=== PATIENT | female | born 1995 | race African-American/Black ===

== ENCOUNTER 2020-01-07 10:31 | Outpatient (REF) | payer OTHER, SELFPAY ==
[2020-01-07 16:54] LABS: CT PCR NOT DETECTED (Not Detect.); NG PCR DETECTED (Not Detect.)
[2020-01-08 12:22] LABS: BV Int Neg Control Negative (Negative); BV Int Pos Control Positive (Positive)
[2020-01-10 08:47] LABS: HIV AB/AG Nonreactive (Nonreactive); HIV Num 1 0.06 S/CO (0.00-0.99)
== END 2020-01-07 10:32 | disposition home or self-care (01) ==
LOC: HO.HMGCLDS 10:31
PROVIDERS: PCP Internal Medicine; Visit Provider Nurse Practitioner Family
DX: Z20.2 Contact with and (suspected) exposure to infections with a predominantly sexual mode of transmission (principal)
CPT/HCPCS: 87389; 87480; 87491; 87510; 87591; 87660

== ENCOUNTER 2020-03-08 09:47 | Outpatient (REF) | payer OTHER, SELFPAY | END 2020-03-08 09:48 | disposition home or self-care (01) | LOC: HO.LAB 09:47 | PROVIDERS: Visit Provider Internal Medicine | DX: Z20.828 Contact with and (suspected) exposure to other viral communicable diseases (principal) | CPT/HCPCS: C9803; U0003 ==

== ENCOUNTER 2020-04-10 09:40 | Outpatient (REF) | payer OTHER, SELFPAY ==
[2020-04-10 14:31] LABS: CT PCR NOT DETECTED (Not Detect.); NG PCR DETECTED (Not Detect.)
[2020-04-10 15:14] LABS: Glucose Urine UA NEG (NEG); Leukocyte Esterase Urine TRACE (NEG); Nitrite Urine NEG (NEG); PH 5.5 (5.0-8.0); Specific Gravity - Urine >= 1.030 (1.005-1.025); Urine Blood NEG (NEG); Urine Ketones NEG (NEG); Urine Protein NEG (NEG-TRACE)
[2020-04-10 15:17] LABS: Appearance Urine CLOUDY; Color Urine YELLOW
[2020-04-10 15:56] LABS: RBC Urine 0 /HPF (0); Squamous Epithelial Cell Urine 1+ /LPF
[2020-04-10 15:57] LABS: Amorphous Sediment Urine 3+ /LPF
[2020-04-11 12:04] LABS: BV Int Neg Control Negative (Negative); BV Int Pos Control Positive (Positive)
== END 2020-04-10 09:41 | disposition home or self-care (01) ==
LOC: HO.LAB 09:40
PROVIDERS: Visit Provider Physician Assistant
DX: N39.0 Urinary tract infection, site not specified (principal); Z11.3 Encounter for screening for infections with a predominantly sexual mode of transmission
CPT/HCPCS: 81001; 81003; 87086; 87480; 87491; 87510; 87591; 87660

== ENCOUNTER 2020-05-18 12:22 | Outpatient (REF) | payer OTHER, SELFPAY ==
[2020-05-18 19:45] LABS: CT PCR NOT DETECTED (Not Detect.); NG PCR NOT DETECTED (Not Detect.)
[2020-05-19 08:23] LABS: BV Int Neg Control Negative (Negative); BV Int Pos Control Positive (Positive)
== END 2020-05-18 12:23 | disposition home or self-care (01) ==
LOC: HO.LAB 12:22
PROVIDERS: Visit Provider Nurse Practitioner Family
DX: N89.8 Other specified noninflammatory disorders of vagina (principal)
CPT/HCPCS: 87480; 87491; 87510; 87591; 87660

== ENCOUNTER 2020-08-14 09:53 | Outpatient (REF) | payer OTHER, SELFPAY ==
[2020-08-15 10:46] LABS: BV Int Neg Control Negative (Negative); BV Int Pos Control Positive (Positive)
== END 2020-08-14 09:54 | disposition home or self-care (01) ==
LOC: HO.LAB 09:53
PROVIDERS: Visit Provider Nurse Practitioner Family
DX: N89.8 Other specified noninflammatory disorders of vagina (principal); R35.0 Frequency of micturition; Z32.02 Encounter for pregnancy test, result negative
CPT/HCPCS: 87086; 87480; 87510; 87660

== ENCOUNTER 2020-08-31 11:12 | Outpatient (REF) | payer OTHER, SELFPAY ==
[2020-08-31 18:40] LABS: CT PCR NOT DETECTED (Not Detect.); NG PCR NOT DETECTED (Not Detect.)
[2020-09-01 03:53] LABS: Syphilis Screen Nonreactive (Nonreactive)
[2020-09-01 04:13] LABS: HBS Num1 44.94 mIU/mL (0-7.99); HBc Num1 0.12 S/CO (0.00-0.79); HIV AB/AG Nonreactive (Nonreactive); HIV Num 1 0.06 S/CO (0.00-0.99); Hepatitis A Antibody IgM 0.12 Index (0-0.79); Hepatitis B Core Antibody Nonreactive (Nonreactive); ~HepC Num1 0.13 S/CO (0.00-0.79); ~Hepatitis A Antibody IgM Nonreactive (Nonreactive); ~Hepatitis B Surface Antibody REACTIVE (Nonreactive); ~Hepatitis C Antibody Nonreactive (Nonreactive)
[2020-09-01 04:24] LABS: HBsAGNum1 0.23 S/CO (0.00-0.99); Hepatitis B Surface Antigen Negative (Negative)
[2020-09-01 08:38] LABS: BV Int Neg Control Negative (Negative); BV Int Pos Control Positive (Positive)
[2020-09-06 18:07] LABS: HSV 1 IgM IFA Negative (Negative); HSV 2 IgM IFA Negative (Negative)
== END 2020-08-31 11:13 | disposition home or self-care (01) ==
LOC: HO.HMGCLDS 11:12
PROVIDERS: PCP Internal Medicine; Visit Provider Hospitalist
DX: Z01.84 Encounter for antibody response examination (principal); Z11.4 Encounter for screening for human immunodeficiency virus [HIV]; Z11.3 Encounter for screening for infections with a predominantly sexual mode of transmission; N89.8 Other specified noninflammatory disorders of vagina
CPT/HCPCS: 36415; 86695; 86696; 86704; 86706; 86709; 86780; 86803; 87086; 87340; 87389; 87480; 87491; 87510; 87591; 87660

== ENCOUNTER 2020-11-06 11:43 | Outpatient (REF) | payer OTHER, SELFPAY ==
[2020-11-06 14:59] LABS: CT PCR NOT DETECTED (Not Detect.); NG PCR NOT DETECTED (Not Detect.)
== END 2020-11-06 11:44 | disposition home or self-care (01) ==
LOC: HO.LNP 11:43
PROVIDERS: Visit Provider Hospitalist
DX: Z20.822 Contact with and (suspected) exposure to COVID-19 (principal); K52.9 Noninfective gastroenteritis and colitis, unspecified; N89.8 Other specified noninflammatory disorders of vagina
CPT/HCPCS: 87491; 87591; U0003; U0005

== ENCOUNTER 2021-03-02 11:44 | Outpatient (REF) | payer OTHER, SELFPAY ==
[2021-03-03 11:19] LABS: BV Int Neg Control Negative (Negative); BV Int Pos Control Positive (Positive)
[2021-03-03 15:59] LABS: CT PCR NOT DETECTED (Not Detect.); NG PCR NOT DETECTED (Not Detect.)
== END 2021-03-02 11:45 | disposition home or self-care (01) ==
LOC: HO.LNP 11:44
PROVIDERS: Visit Provider Internal Medicine
DX: N39.0 Urinary tract infection, site not specified (principal)
CPT/HCPCS: 87480; 87491; 87510; 87591; 87660

== ENCOUNTER 2021-04-26 11:26 | Outpatient (REF) | payer OTHER, SELFPAY ==
[2021-04-27 08:31] LABS: HIV AB/AG Nonreactive (Nonreactive); HIV Num 1 0.07 S/CO (0.00-0.99); ~HepC Num1 0.17 S/CO (0.00-0.79); ~Hepatitis C Antibody Nonreactive (Nonreactive)
[2021-04-27 08:39] LABS: Syphilis Screen Nonreactive (Nonreactive)
== END 2021-04-26 11:27 | disposition home or self-care (01) ==
LOC: HO.HMGCLDS 11:26
PROVIDERS: PCP Internal Medicine; Visit Provider Nurse Practitioner Family
DX: Z11.4 Encounter for screening for human immunodeficiency virus [HIV] (principal); Z11.3 Encounter for screening for infections with a predominantly sexual mode of transmission
CPT/HCPCS: 36415; 86780; 86803; 87389

== ENCOUNTER 2021-04-26 13:48 | Outpatient (REF) | payer OTHER, SELFPAY ==
[2021-04-26 15:53] LABS: CT PCR NOT DETECTED (Not Detect.); NG PCR NOT DETECTED (Not Detect.)
[2021-04-27 10:00] LABS: BV Int Neg Control Negative (Negative)
[2021-04-27 10:01] LABS: BV Int Pos Control Positive (Positive)
== END 2021-04-26 13:49 | disposition home or self-care (01) ==
LOC: HO.LNP 13:48
PROVIDERS: Visit Provider Nurse Practitioner Family
DX: N76.0 Acute vaginitis (principal); B96.89 Other specified bacterial agents as the cause of diseases classified elsewhere
CPT/HCPCS: 87480; 87491; 87510; 87591; 87660

== ENCOUNTER 2021-06-22 11:04 | Outpatient (REF) | payer OTHER, SELFPAY ==
[2021-06-22 14:23] LABS: Syphilis Screen Nonreactive (Nonreactive)
[2021-06-25 04:07] LABS: HIV AB/AG Nonreactive (Nonreactive); HIV Num 1 0.05 S/CO (0.00-0.99); ~HepC Num1 0.14 S/CO (0.00-0.79); ~Hepatitis C Antibody Nonreactive (Nonreactive)
== END 2021-06-22 11:05 | disposition home or self-care (01) ==
LOC: HO.HMGCLDS 11:04
PROVIDERS: Visit Provider Nurse Practitioner Family
DX: Z11.4 Encounter for screening for human immunodeficiency virus [HIV] (principal); Z11.3 Encounter for screening for infections with a predominantly sexual mode of transmission
CPT/HCPCS: 36415; 86780; 86803; 87389

== ENCOUNTER 2021-06-22 13:35 | Outpatient (REF) | payer OTHER, SELFPAY ==
[2021-06-22 15:47] LABS: CT PCR NOT DETECTED (Not Detect.); NG PCR NOT DETECTED (Not Detect.)
[2021-06-23 11:09] LABS: BV Int Neg Control Negative (Negative)
[2021-06-23 11:10] LABS: BV Int Pos Control Positive (Positive)
== END 2021-06-22 13:36 | disposition home or self-care (01) ==
LOC: HO.LNP 13:35
PROVIDERS: Visit Provider Nurse Practitioner Family
DX: Z11.3 Encounter for screening for infections with a predominantly sexual mode of transmission (principal); Z11.4 Encounter for screening for human immunodeficiency virus [HIV]; B96.89 Other specified bacterial agents as the cause of diseases classified elsewhere; N76.0 Acute vaginitis
CPT/HCPCS: 87480; 87491; 87510; 87591; 87660

== ENCOUNTER 2021-08-07 16:22 | Outpatient (REF) | payer OTHER, SELFPAY ==
[2021-08-08 10:55] LABS: BV Int Neg Control Negative (Negative); BV Int Pos Control Positive (Positive)
== END 2021-08-07 16:23 | disposition home or self-care (01) ==
LOC: HO.LNP 16:22
PROVIDERS: Visit Provider Internal Medicine
DX: N89.8 Other specified noninflammatory disorders of vagina (principal)
CPT/HCPCS: 87480; 87510; 87660

== ENCOUNTER 2021-09-27 14:17 | Outpatient (REF) | payer OTHER, SELFPAY ==
[2021-09-28 13:35] LABS: BV Int Neg Control Negative (Negative); BV Int Pos Control Positive (Positive)
== END 2021-09-27 14:18 | disposition home or self-care (01) ==
LOC: HO.LNP 14:17
PROVIDERS: Visit Provider Internal Medicine
DX: N89.8 Other specified noninflammatory disorders of vagina (principal)
CPT/HCPCS: 87480; 87510; 87660

== ENCOUNTER 2021-10-11 11:32 | Outpatient (REF) | payer OTHER, SELFPAY ==
[2021-10-12 09:22] LABS: BV Int Neg Control Negative (Negative); BV Int Pos Control Positive (Positive)
== END 2021-10-11 11:33 | disposition home or self-care (01) ==
LOC: HO.LNP 11:32
PROVIDERS: Visit Provider Internal Medicine
DX: R35.0 Frequency of micturition (principal); N89.8 Other specified noninflammatory disorders of vagina; R30.0 Dysuria
CPT/HCPCS: 87086; 87480; 87510; 87660

== ENCOUNTER 2022-02-13 11:20 | Outpatient (REF) | payer OTHER, SELFPAY ==
[2022-02-14 03:39] LABS: CT PCR NOT DETECTED (Not Detect.); NG PCR NOT DETECTED (Not Detect.)
[2022-02-14 10:14] LABS: BV Int Neg Control Negative (Negative); BV Int Pos Control Positive (Positive)
== END 2022-02-13 11:21 | disposition home or self-care (01) ==
LOC: HO.LAB 11:20
PROVIDERS: Visit Provider Internal Medicine
DX: N76.0 Acute vaginitis (principal)
CPT/HCPCS: 87480; 87491; 87510; 87591; 87660

== ENCOUNTER 2022-04-03 14:01 | Outpatient (REF) | payer OTHER, SELFPAY | END 2022-04-03 14:02 | disposition home or self-care (01) | LOC: HO.HMGCLDS 14:01 | PROVIDERS: PCP Internal Medicine; Visit Provider Internal Medicine | DX: Z13.89 Encounter for screening for other disorder (principal) ==

== ENCOUNTER 2022-04-03 14:01 | Outpatient (REF) | payer OTHER, SELFPAY | END 2022-04-03 14:02 | disposition home or self-care (01) | LOC: HO.LAB 14:01 | PROVIDERS: Visit Provider Internal Medicine | DX: Z13.89 Encounter for screening for other disorder (principal) ==

== ENCOUNTER 2022-04-03 14:01 | Outpatient (REF) | payer OTHER, SELFPAY ==
[2022-04-04 09:59] LABS: BV Int Neg Control Negative (Negative); BV Int Pos Control Positive (Positive)
[2022-04-06 02:33] LABS: HPV mRNA E6/E7 Not Detected (Not Detected)
== END 2022-04-03 14:02 | disposition home or self-care (01) ==
LOC: HO.LNP 14:01
PROVIDERS: Visit Provider Internal Medicine
DX: Z01.419 Encounter for gynecological examination (general) (routine) without abnormal findings (principal); N76.0 Acute vaginitis
CPT/HCPCS: 87480; 87510; 87624; 87660; 88142

== ENCOUNTER 2022-04-04 09:36 | Outpatient (REF) | payer OTHER, SELFPAY ==
[2022-04-04 11:21] LABS: MANUAL DIFF FLAG NO
[2022-04-04 11:39] LABS: Basophils Absolute Auto 0.1 X10*3/uL (0.0-0.2); Basophils Percent Auto 0.5 % (0-2); Eosinophils Absolute Auto 1.1 X10*3/uL (0.0-0.4); Hematocrit 39.6 % (37.0-47.0); Hemoglobin 13.2 g/dl (12.0-16.0); Imm Gran Abs Auto 0.02 X10*3/uL (0.00-0.03); Imm Gran Pct Auto 0.2 % (0.0-0.4); Lymphocytes Absolute Auto 2.6 X10*3/uL (1.2-4.9); Lymphocytes Percent Auto 26.6 % (20-40); Mean Corpuscular HGB Conc 33.3 g/dl (31.0-35.0); Mean Platelet Volume 11.3 fL (9.4-12.3); Monocytes Percent Auto 10.1 % (2-11); Neutrophils Percent Auto 51.6 % (45-73); Platelet Count 255 X10*3/uL (160-400); Red Blood Count 4.26 X10*6/uL (4.20-5.50); Red Cell Distribution Width 13.1 % (11.0-16.0); White Blood Count 9.7 X10*3/uL (4.8-10.8)
[2022-04-04 12:01] LABS: Alanine Aminotransferase 44 U/L (0-31); Alkaline Phosphatase 60 U/L (39-117); Anion Gap 13 (12-20); Aspartate Amino Transferase 152 U/L (5-31); Bilirubin Total 0.5 mg/dL (0.0-1.0); Blood Urea Nitrogen 12 mg/dL (9-16); Calcium 9.2 mg/dL (8.4-10.2); Carbon Dioxide 23 mmol/L (22-29); Chloride 108 mmol/L (96-108); Cholesterol 193 mg/dL; Estimated Glomerular Filt Rate > 60; Glucose Fasting 72 mg/dL (60-99); HDL Cholesterol 54 mg/dL; LDL Cholesterol Calculated 128 mg/dl; Potassium 4.2 mmol/L (3.3-5.1); Sodium 140 mmol/L (135-145); Total Protein 6.5 g/dL (6.5-8.0); Triglycerides 59 mg/dL
[2022-04-04 13:56] LABS: CT PCR NOT DETECTED (Not Detect.); NG PCR NOT DETECTED (Not Detect.)
[2022-04-05 08:57] LABS: Syphilis Screen Nonreactive (Nonreactive)
[2022-04-05 08:58] LABS: HIV AB/AG Nonreactive (Nonreactive); HIV Num 1 0.04 S/CO (0.00-0.99)
[2022-04-05 09:30] LABS: HBS Num1 33.39 mIU/mL (0-7.99); HBc Num1 0.08 S/CO (0.00-0.79); HBsAGNum1 0.34 S/CO (0.00-0.99); Hepatitis A Antibody IgM 0.17 Index (0-0.79); Hepatitis B Core Antibody Nonreactive (Nonreactive); Hepatitis B Surface Antigen Negative (Negative); ~HepC Num1 0.12 S/CO (0.00-0.79); ~Hepatitis A Antibody IgM Nonreactive (Nonreactive); ~Hepatitis B Surface Antibody REACTIVE (Nonreactive); ~Hepatitis C Antibody Nonreactive (Nonreactive)
== END 2022-04-04 09:37 | disposition home or self-care (01) ==
LOC: HO.HMGCLDS 09:36
PROVIDERS: PCP Internal Medicine; Visit Provider Internal Medicine
DX: Z00.00 Encounter for general adult medical examination without abnormal findings (principal); Z11.4 Encounter for screening for human immunodeficiency virus [HIV]; J45.909 Unspecified asthma, uncomplicated; R79.89 Other specified abnormal findings of blood chemistry
CPT/HCPCS: 0353U; 36415; 80053; 80061; 85025; 86704; 86706; 86709; 86780; 86803; 87340; 87389

== ENCOUNTER 2022-06-07 14:08 | Outpatient (REF) | payer OTHER, SELFPAY ==
[2022-06-07 17:23] LABS: CT PCR NOT DETECTED (Not Detect.); NG PCR NOT DETECTED (Not Detect.)
[2022-06-08 15:10] LABS: BV Int Neg Control Negative (Negative); BV Int Pos Control Positive (Positive)
== END 2022-06-07 14:09 | disposition home or self-care (01) ==
LOC: HO.LNP 14:08
PROVIDERS: Visit Provider Internal Medicine
DX: N76.0 Acute vaginitis (principal); B96.89 Other specified bacterial agents as the cause of diseases classified elsewhere
CPT/HCPCS: 0353U; 87480; 87510; 87660

== ENCOUNTER 2022-06-20 11:09 | Outpatient (REF) | payer OTHER, SELFPAY ==
[2022-06-20 12:56] LABS: CT PCR NOT DETECTED (Not Detect.); NG PCR NOT DETECTED (Not Detect.)
[2022-06-21 10:39] LABS: BV Int Neg Control Negative (Negative); BV Int Pos Control Positive (Positive)
== END 2022-06-20 11:10 | disposition home or self-care (01) ==
LOC: HO.LNP 11:09
PROVIDERS: Visit Provider Internal Medicine
DX: N89.8 Other specified noninflammatory disorders of vagina (principal)
CPT/HCPCS: 0353U; 87480; 87510; 87660

== ENCOUNTER 2022-06-28 09:19 | Outpatient (REF) | payer OTHER, SELFPAY | END 2022-06-28 09:20 | disposition home or self-care (01) | LOC: HO.LAB 09:19 | PROVIDERS: Visit Provider Internal Medicine | DX: Z13.89 Encounter for screening for other disorder (principal) ==

== ENCOUNTER 2022-08-06 10:55 | Outpatient (REF) | payer OTHER, SELFPAY ==
[2022-08-06 14:51] LABS: Appearance Urine Clear; Color Urine Yellow; Glucose Urine UA Negative (Negative); Leukocyte Esterase Urine Small (1+) (Negative); Nitrite Urine Negative (Negative); PH 6.5 (5.0-9.0); Specific Gravity - Urine 1.025 (1.005-1.025); UMIC TRIGGER UACC YES; Urine Blood Moderate (2+) (Negative); Urine Ketones Negative (Negative); Urine Protein Negative (Neg-Trace)
[2022-08-06 15:19] LABS: Bacteria Urine 1+ (None Seen); Hyaline Casts Urine 0-2 /LPF (0-2); UACC Culture Trigger YES; WBC Urine 0-5 /HPF (0-5)
[2022-08-07 12:36] LABS: BV Int Neg Control Negative (Negative); BV Int Pos Control Positive (Positive)
== END 2022-08-06 10:56 | disposition home or self-care (01) ==
LOC: HO.LAB 10:55
PROVIDERS: Visit Provider Internal Medicine
DX: R30.0 Dysuria (principal)
CPT/HCPCS: 81001; 87086; 87480; 87510; 87660

== ENCOUNTER 2022-08-30 09:55 | Outpatient (REF) | payer OTHER, SELFPAY ==
[2022-08-30 13:14] LABS: CT PCR NOT DETECTED (Not Detect.); NG PCR NOT DETECTED (Not Detect.)
[2022-08-31 10:28] LABS: BV Int Neg Control Negative (Negative); BV Int Pos Control Positive (Positive)
== END 2022-08-30 09:56 | disposition home or self-care (01) ==
LOC: HO.LNP 09:55
PROVIDERS: Visit Provider Nurse Practitioner Family
DX: N89.8 Other specified noninflammatory disorders of vagina (principal)
CPT/HCPCS: 0353U; 87480; 87510; 87660

== ENCOUNTER 2022-11-21 09:10 | Outpatient (AMB) | payer OTHER, SELFPAY ==
--- NOTE | 2022-11-21 09:50 | MHC.OFFWIV ---
Intake Vital Signs 11/21/22 09:53 Weight 86.636 kg BP 110/70 Blood Pressure Location Lt brachial Position Sitting Pulse 72 Pulse Source Pulse Oximeter Temp 97.2 F Temp Source Temporal Artery Scan Pulse Oximetry (%) 98 Oxygen Delivery Method Room Air Intake Visit Reasons: EP Discharge Intake Note: Patient here for UTI or yeast infection, she has discharge that has been present for about 2 days, not urinating as usual. denies itchiness, burning, back pain. Patient Tobacco Use Status: Never used Tobacco Allergies No Known Allergies Allergy (Verified 11/21/22 09:53) Do you need a note to return to daycare/school/sports/work: No HPI HPI Comments History of Present Illness Details 1010 27-year-old female presents requesting UTI testing and testing for bacterial vaginosis, patient reports musty vaginal discharge. Patient also reports some vaginal discharge and she thinks it is BV. She does not think it is an STD. She states she recently got STD tested. Denies nausea, vomiting, fevers, chills, abdominal pain, headache, vision changes, dizziness, chest pain and shortness of breath Physical exam benign. Patient will self swab. Plan at this time urine, BV test. Patient does not want prophylactic STD testing. Will prophylactically treat with metronidazole p.o. b.i.d. x7 days. Educated patient on diagnosis and treatment plan, answered all question, patient verbalizes understanding. At this time patient will be discharged home, advised to return with new or worsening symptoms. Educated on worrisome signs and symptoms and when to return. At this time I feel comfortable discharge home. Patient requested a refill on her albuterol inhaler she just ran out, no respiratory symptoms at this time. Also requesting fluconazole be she states Flagyl gives her a yeast infection. [facility] Medical History Alopecia Annual physical exam GERD (gastroesophageal reflux disease) Mild asthma Surgical History No pertinent past surgical history Family History Father Medical history non-contributory Mother Medical history non-contributory Brother No problems noted. Brother No problems noted. Sister No problems noted. Son No problems noted. Social History Household Members Other:: lives alone, 1 son 6y old, smoke marijuana, Housing: House Patient Tobacco Use Status: Never used Tobacco e-Cigarette/Vaping Use: Never Used Current occupational status: employed Cognitive needs: No Hearing needs: No Vision needs: No Review of Systems Const Details: Constitutional : No Weight loss, No Fever, No Chills, No Fatigue, No Malaise ENT/Mouth : No sore throat, No Rhinorrhea Eyes: No Eye Pain, No Swelling, No Redness Cardiovascular : No Chest Pain, No SOB, No Dyspnea on Exertion, No Orthopnea, No Edema, No Palpitations Respiratory : No Cough, No Sputum, No Wheezing Gastrointestinal : No Nausea, No Vomiting, No Diarrhea, No Constipation, No abdominal Pain, No Hematochezia, No Melena Genitourinary : No Dysuria, No Urinary Frequency, No Hematuria, + vaginal dc Musculoskeletal : No joint pain, No Myalgias, No Joint Swelling Skin : No Skin Lesions, No rash Neuro : No Weakness, No Numbness, No Dizziness, No Headache Psych : No Anxiety/Panic, No Depression All other systems reviewed and are negative All systems reviewed & are unremarkable except as noted in HPI and below Physical Exam Vital Signs: Last Vital Signs Temp 97.2 F 11/21/22 09:53 Pulse 72 11/21/22 09:53 BP 110/70 11/21/22 09:53 Pulse Ox 98 11/21/22 09:53 Oxygen Delivery Method Room Air 11/21/22 09:53 vss Appearance: Alert.? Oriented X3.? No acute distress.? Head: Normocephalic, atraumatic, no step-offs or deformities Eyes: Pupils equal, round and reactive to light.? CVS: Normal heart rate and rhythm.? Pulses normal.? Respiratory: No respiratory distress.? Breath sounds normal.? Abdomen: Soft and nontender.? Skin: Skin warm and dry.? Normal skin color.? Normal skin turgor.? Extremities: No lower extremity edema.? No calf ttp. 5/5 strength to bilateral upper and lower extremities Neuro: Oriented X 3.? No motor deficit.? No sensory deficit. CN 2-12 intact Results AMB Urinalysis, Automated UA Leukoctes 15 Neymar/uL Last Edit by Leon Gibson [facility] on 11/21/22 10:04 UA Nitrite Negative Last Edit by Leon Gibson [facility] on 11/21/22 10:04 UA Urobilinogen 0.2 mg/dL Last Edit by EvetteHarleen Gibson [facility] on 11/21/22 10:04 UA Protein 15 mg/dL Last Edit by EvetteHarleen Gibson [facility] on 11/21/22 10:04 UA pH 5.5 Last Edit by [facility] on 11/21/22 10:04 UA Blood 0 Charles/uL Last Edit by EvetteNicole Gibson [facility] on 11/21/22 10:04 UA Specific [place] 1.030 Last Edit by EvetteHarleen Gibson [facility] on 11/21/22 10:04 UA Ketone Positive Last Edit by EvetteHarleen Gibson [facility] on 11/21/22 10:04 UA Bilirubin 1 mg/dL Last Edit by EvetteHarleen Gibson [facility] on 11/21/22 10:04 UA Glucose 0 mg/dL Last Edit by EvetteNicole Gibson, [facility] on 11/21/22 10:04 Results Reviewed Results Reviewed: Laboratory Last Values Urine pH (Auto) 5.5 11/21/22 10:03 Specific [place] (Auto) 1.030 11/21/22 10:03 Urine Protein (Auto) 15 mg/dL 11/21/22 10:03 Glucose (UA)(Auto) 0 mg/dL 11/21/22 10:03 Urine Ketones (Auto) Positive 11/21/22 10:03 Urine Blood (Auto) 0 Charles/uL 11/21/22 10:03 Urine Nitrite (Auto) Negative 11/21/22 10:03 Urine Bilirubin (Auto) 1 mg/dL 11/21/22 10:03 Urine Urobilinogen (Auto) 0.2 mg/dL 11/21/22 10:03 Leukocyte Esterase (Auto) 15 Neymar/uL 11/21/22 10:03 Assessment & Plan Assessment & Plan (1) Vaginal discharge: Comment: Pt tested for UTI, bacterial vaginosis panel as well as chlamydia and gonorrhea. Patient treated with 500 IM ceftriaxone will prescribe 7 days of 100 mg doxy. UTI was positive, will treat with 3 days of Bactrim. Code(s): N89.8 - Other specified noninflammatory disorders of vagina Plan Take your medications as prescribed. If you were prescribed antibiotics today, it is important that you take your medication to their entirety, do not skip any doses, do not finish them early. Follow-up with your primary care provider this week. Return to the emergency department with new or worsening symptoms. Such as fevers, chills, chest pain, shortness of breath, nausea, vomiting, dizziness, headache, vision changes, lethargy In case of emergency call 911 Orders: Orders AMB Urinalysis Automated Today Z13.9 - Encounter for screening, unspecified Medications: New metronidazole 500 mg PO BID 7 days 14 tabs 0RF fluconazole 150 mg PO Q3D 2 tabs 0RF 2 doses albuterol sulfate 90 mcg/actuation 2 puffs inhalation Q6H PRN 6.7 grams 0RF shortness of breath or wheezing Coding Level of Care Code Est Pt Level 3 (80421) Diagnoses Vaginal discharge N89.8
[2022-11-21 09:53] VITALS: BP 110/70; PULSE 72; TEMP 36.2; O2SAT 98
== END 2022-11-21 10:28 | disposition home or self-care (01) ==
PROVIDERS: PCP Internal Medicine; Visit Provider Physician Assistant
DX: N89.8 Other specified noninflammatory disorders of vagina (principal)
CPT/HCPCS: 81003; 99213

== ENCOUNTER 2022-11-21 10:26 | Outpatient (REF) | payer OTHER, SELFPAY ==
[2022-11-22 15:42] LABS: BV Int Neg Control Negative (Negative); BV Int Pos Control Positive (Positive)
== END 2022-11-21 10:27 | disposition home or self-care (01) ==
LOC: HO.LNP 10:26
PROVIDERS: Visit Provider Physician Assistant
DX: N89.8 Other specified noninflammatory disorders of vagina (principal); Z13.9 Encounter for screening, unspecified
CPT/HCPCS: 87480; 87510; 87660

== ENCOUNTER 2023-01-14 13:37 | Outpatient (AMB) | payer OTHER, SELFPAY ==
[2023-01-14 14:20] VITALS: BP 122/76; PULSE 58; TEMP 36.6; O2SAT 98; BMI 29.3
--- NOTE | 2023-01-14 14:20 | MHC.OFFWIV ---
Intake Vital Signs 01/14/23 14:20 Height 5 ft 7 in Weight 187 lb BMI 29.3 BP 122/76 Blood Pressure Location Lt brachial Position Sitting Pulse 58 Pulse Source Pulse Oximeter Temp 97.8 F Temp Source Temporal Artery Scan Pulse Oximetry (%) 98 Oxygen Delivery Method Room Air Intake Visit Reasons: EP, vaginal discharge Intake Note: pt is here for c/o vaginal discharge Patient Tobacco Use Status: Never used Tobacco Allergies No Known Allergies Allergy (Verified 01/14/23 14:20) Do you need a note to return to daycare/school/sports/work: Yes HPI HPI Comments History of Present Illness Details This is a 19-year-old female with a past medical history of asthma presenting for evaluation of vaginal discharge she has had since Friday. Patient describes her discharge as yellow and watery. Patient denies having any fevers, chills, dysuria, urinary frequency, hematuria, abdominal pain or new sexual partners. Patient does not use any barrier control and is sexually active with a single partner. [facility] Medical History GERD (gastroesophageal reflux disease) Annual physical exam Mild asthma Alopecia Surgical History No pertinent past surgical history Family History Father Medical history non-contributory Mother Medical history non-contributory Brother No problems noted. Brother No problems noted. Sister No problems noted. Son No problems noted. Social History Household Members Other:: lives alone, 1 son 6y old, smoke marijuana, Housing: House Patient Tobacco Use Status: Never used Tobacco e-Cigarette/Vaping Use: Never Used Current occupational status: employed Cognitive needs: No Hearing needs: No Vision needs: No Review of Systems Const Denies chills, Denies fatigue, Denies fever(s) and Denies lethargy GI Reports as per HPI and Denies abdominal pain Reports no additional complaints, Denies abnormal menses, Denies abnormal vaginal bleeding, Denies hematuria, Denies genital pruritis, Denies genital lesions, Reports vaginal discharge (yellow, watery) and Denies vaginal pruritus Musc Reports no additional complaints Skin/Breast Reports system reviewed and no additional complaints, except as documented Endo Denies fatigue Physical Exam Vital Signs: Last Vital Signs Temp 97.8 F 01/14/23 14:20 Pulse 58 01/14/23 14:20 BP 122/76 01/14/23 14:20 Pulse Ox 98 01/14/23 14:20 Oxygen Delivery Method Room Air 01/14/23 14:20 BMI result Body Mass Index 29.3 Const Other: Afebrile, no acute distress. General: cooperative, healthy appearing, comfortable, no acute distress, well developed and alert Nutritional Appearance: average body habitus Orientation/consciousness: patient oriented x3 Limitations: no limitations Cardio Rate: regular rate Rhythm: regular rhythm GI Inspection: Yes normal to inspection Palpation (GI): Soft to palpation, nontender, no guarding and not rigid Auscultation: normal bowel sounds Other: Pelvic examination deferred by patient; prefers to self swab her vagina. General: Yes no CVA tenderness Back/Spine/Pelvis Back: no CVA tenderness Neuro General: patient oriented x3 Psych Appearance: grossly normal Mental Status: mental status grossly normal Insight: Good insight present (Psych) Judgement: Good judgement present (Psych) Assessment & Plan Assessment & Plan (1) Vaginitis: Comment: Testing for gonorrhea, chlamydia, bacterial vaginitis, vaginal [place] and trichomoniasis pending; urine Hcg negative. Code(s): N76.0 - Acute vaginitis Plan: Patient encouraged to use condoms with all sexual activity; no treatment is initiated today pending results of testing. Orders: Orders CT NG by PCR Today N76.0 - Acute vaginitis Bacterial Vaginosis Panel Today N76.0 - Acute vaginitis Coding Level of Care Code Est Pt Level 4 (15383) Diagnoses Vaginitis N76.0 Time Spent (min) 25
== END 2023-01-14 15:27 | disposition home or self-care (01) ==
PROVIDERS: PCP Internal Medicine; Visit Provider Physician Assistant
DX: N76.0 Acute vaginitis (principal); Z32.02 Encounter for pregnancy test, result negative
CPT/HCPCS: 81025; 99214

== ENCOUNTER 2023-01-14 14:58 | Outpatient (REF) | payer OTHER, SELFPAY ==
[2023-01-14 18:00] LABS: CT PCR NOT DETECTED (Not Detect.); NG PCR NOT DETECTED (Not Detect.)
[2023-01-15 12:58] LABS: BV Int Neg Control Negative (Negative); BV Int Pos Control Positive (Positive)
== END 2023-01-14 14:59 | disposition home or self-care (01) ==
LOC: HO.LAB 14:58
PROVIDERS: Visit Provider Physician Assistant
DX: N76.0 Acute vaginitis (principal)
CPT/HCPCS: 0353U; 87480; 87510; 87660

== ENCOUNTER 2023-08-01 09:02 | Outpatient (AMB) | payer OTHER, SELFPAY ==
[2023-08-01 09:04] VITALS: BP 124/70; PULSE 65; BMI 27.9
--- NOTE | 2023-08-01 09:04 | MHC.PC.OV ---
Vital Signs 08/01/23 09:04 Height 5 ft 7 in Weight 178 lb BMI 27.9 BP 124/70 Blood Pressure Location Rt brachial Position Sitting Pulse 65 Pulse Source Palpation Intake Visit Reasons: Annual physical Intake Note: Pt is here today for PE. Allergies No Known Allergies Allergy (Verified 08/01/23 09:12) Medication List - Last Reconciled 08/01/23 by Maricarmen Guadarrama MD minoxidil 2.5 mg PO DAILY Ventolin HFA 90 mcg/actuation (albuterol sulfate) 2 puffs inhalation QID PRN NS Tobacco use date assessed: 08/01/23 Dental Screening Dental Screen Date: 08/01/23 Did you have a dental visit in the last 12 months?: Yes Did you have a dental problem in the last 6 months where you did not have access to dental care?: No Was dental information given to patient?: Patient has dentist HPI Annual physical HPI Details Pt presents for PE. Pt c/o feeling chronicly depressed and overwhelmed being a single mom taking care of her 9 yo son. Pt denies suicidal ideation. Patient tried counseling for 2 sessions last year but she did not continue. She has not interested in medications. Patient works out 5 times a week for these 2 hours at the gym she also works full-time. [facility] Medical History GERD (gastroesophageal reflux disease) Annual physical exam Mild asthma Alopecia Surgical History No pertinent past surgical history Family History Father Medical history non-contributory Mother Medical history non-contributory Brother No problems noted. Brother No problems noted. Sister No problems noted. Son No problems noted. Social History Household Members Other:: lives alone, 1 son 6y old, smoke marijuana, Housing: House Patient Tobacco Use Status: Never used Tobacco e-Cigarette/Vaping Use: Never Used service: No Current occupational status: employed Cognitive needs: No Hearing needs: No Vision needs: No Questionnaire PHQ-9 Over the last 2 weeks, how often have you been bothered by any of the following problems? 1. Little interest or pleasure in doing things: nearly every day 2. Feeling down, depressed, or hopeless: nearly every day 3. Trouble falling or staying asleep, or sleeping too much: more than half the days 4. Feeling tired or having little energy: nearly every day 5. Poor appetite or overeating: nearly every day 6. Feeling bad about yourself - or that you are a failure or have let yourself or your family down: nearly every day 7. Trouble concentrating on things, such as reading the newspaper or watching television: nearly every day 8. Moving or speaking so slowly that other people could have noticed. Or the opposite - being so fidgety or restless that you have been moving around a lot more than usual: nearly every day 9. Thoughts that you would be better off or of hurting yourself in some way: not at all Total score: 23 Depression Screening Interpretation: Positive (Patient will start therapy and will follow-up in 1 month) Depression Screening Follow-up: Existing condition Depression Screening Done: Yes Source: Developed by Drs. Roger Rodríguez, Gladys Vital, Casey Edward and colleagues, with an educational radha from [employer] Thrive Questionnaire Date Thrive assessed: 08/01/23 I am a: Patient What is your living situation today?: I have a steady place to live Within the past 12 months, did the food you bought not last and you didn't have the money to get more?: Never true Within the past 12 months, did you worry whether your food would run out before you got money to buy more?: Never true Do you have trouble paying for medicines?: Yes Do you have trouble getting transportation to medical appointments?: Yes Do you have trouble paying your heating and electricity bill?: No Do you have trouble taking care of your child, family member or friend?: No Do you have trouble with day-to-day activities such as bathing, preparing meals, shopping, managing finances, etc.?: No Are you currently unemployed and looking for a job?: No Are you interested in more education?: No Please select the resources that you would like help with: Paying for medicine and Transportation THRIVE Score: 1 AUDIT C Alcohol Use Questionnaire (AUDIT-C) 1. How often do you have a drink containing alcohol?: Never 3. How often do you have six or more drinks on one occasion?: Never Total Score: 0 JEET-7 AMB Questionnaire JEET-7 Date JEET - 7 assessed: 08/01/23 Feeling nervous, anxious, or on edge: 3 = Nearly every day Not being able to stop or control worryin = Several days Worrying too much about different things: 3 = Nearly every day Trouble relaxin = Nearly every day Being so restless that it is hard to sit still: 3 = Nearly every day Becoming easily annoyed or irritable: 3 = Nearly every day Feeling afraid as if something awful might happen: 1 = Several days Total JEET-7 score (0-4 normal; 5-9 mild; 10-14 moderate; 15-21 severe): 17 Source: Developed by Drs. Roger Rodríguez, Gladys Vital, Casey Edward and colleagues, with an educational radha from [employer]. Review of Systems Const All systems reviewed & are unremarkable except as noted in HPI and below Reports no additional complaints Eyes Reports no additional complaints ENT Reports no additional complaints Card Reports no additional complaints Resp Reports no additional complaints GI Reports no additional complaints Reports no additional complaints Physical exam (Primary Care) Vital Signs: Last Vital Signs Pulse 65 08/01/23 09:04 BP 124/70 08/01/23 09:04 BMI result Body Mass Index 27.9 Tobacco/Smoking Status: Tobacco use Status Tobacco use date assessed 08/01/23 08/01/23 09:15 Patient Tobacco Use Status Never used Tobacco 08/01/23 09:05 e-Cigarette/Vaping Use Never Used 08/01/23 09:05 PHQ-9: PHQ-9 Score PHQ-9: Total score 23 08/01/23 10:11 Depression Screening Interpretation: Positive (Patient will start therapy and will follow-up in 1 month) Depression Screening Follow-up: Existing condition Thrive Assessment: Date of Thrive Assessment Date Thrive assessed 08/01/23 08/01/23 09:19 Const General: no acute distress HENMT Head: Yes normal to inspection Ears: hearing grossly normal bilaterally General nose exam: Normal external nose present Mouth: Normal oral and palatal mucosa present Throat: Yes posterior oropharynx normal Eyes General: appearance normal, both eyes and all related structures Neck Neck: Yes no lymphadenopathy and Yes supple Resp Effort & Inspection: normal respiratory effort Auscultation: clear to auscultation bilaterally Cardio Rhythm: regular rhythm Heart sounds: S1 normal heart sound present and S2 normal heart sound present GI Inspection: Yes normal to inspection Palpation (GI): Soft to palpation Percussion: Yes normal to percussion Auscultation: normal bowel sounds Assessment and Plan Assessment & Plan (1) Pelvic inflammatory disease, female: Comment: For current BV infection patient will be referred to to keg inspector Code(s): N73.9 - Female pelvic inflammatory disease, unspecified Plan: refer to auditor/quality (2) Annual physical exam: Code(s): Z00.00 - Encounter for general adult medical examination without abnormal findings Plan: Well-balanced diet regular physical activity discussed with the patient. She will return for fasting blood work (3) Asthma: Code(s): J45.909 - Unspecified asthma, uncomplicated Plan: Asmanex 1 puff twice a day will be started patient will continue to use albuterol inhaler. She is made aware that if she is to use rescue inhaler more than twice a week patient should be using Asmanex regularly. For seasonal allergy patient will try Zyrtec if her symptoms persist she will be referred to the civil service clerk (4) Anxiety: Code(s): F41.9 - Anxiety disorder, unspecified Plan: Stress management and mindfulness discussed with the patient. She will be referred to counseling. Patient will follow-up in 1 month Orders: Orders Comprehensive [place]. Panel Fast Today Complete Blood Count Auto Diff Today Lipid Panel Today UA w Microscopic Today Bacterial Vaginosis Panel Today Referrals DIABETES PHYSICIAN Referral N73.9 - Female pelvic inflammatory disease, unspecified Medications: New cetirizine (Zyrtec) 10 mg PO DAILY PRN 90 tabs 3RF allergy symptoms mometasone 100 mcg/actuation (Asmanex HFA) 1 puff inhalation BID 13 grams 3RF Refilled Ventolin HFA 90 mcg/actuation (albuterol sulfate) 2 puffs inhalation QID PRN 8 grams 3RF for wheezing NS Coding Level of Care Code Est Pt Prev Care 18-39y(50250) Diagnoses Pelvic inflammatory disease, female N73.9 Annual physical exam Z00.00 Asthma J45.909 Anxiety F41.9
== END 2023-08-01 10:06 | disposition home or self-care (01) ==
PROVIDERS: PCP Internal Medicine; Visit Provider Internal Medicine
DX: N73.9 Female pelvic inflammatory disease, unspecified (principal); Z00.00 Encounter for general adult medical examination without abnormal findings; J45.909 Unspecified asthma, uncomplicated; F41.9 Anxiety disorder, unspecified
CPT/HCPCS: 99395

== ENCOUNTER 2023-08-01 10:09 | Outpatient (REF) | payer OTHER, SELFPAY ==
[2023-08-02 12:05] LABS: BV Int Neg Control Negative (Negative); BV Int Pos Control Positive (Positive)
== END 2023-08-01 10:10 | disposition home or self-care (01) ==
LOC: HO.LAB 10:09
PROVIDERS: Visit Provider Internal Medicine
DX: Z13.89 Encounter for screening for other disorder (principal)
CPT/HCPCS: 87480; 87510; 87660

== ENCOUNTER 2023-10-08 09:47 | Outpatient (AMB) | payer OTHER, SELFPAY ==
[2023-10-08 09:48] VITALS: BP 118/74; PULSE 69; O2SAT 100; BMI 28.5
--- NOTE | 2023-10-08 09:48 | MHC.PC.OV ---
Vital Signs 10/08/23 09:48 Height 5 ft 7 in Weight 182 lb BMI 28.5 BP 118/74 Blood Pressure Location Rt brachial Position Sitting Pulse 69 Pulse Source Pulse Oximeter Pulse Oximetry (%) 100 Oxygen Delivery Method Room Air Intake Visit Reasons: 2 months follow up Intake Note: Pt is here today for 2 months follow up visit. Allergies No Known Allergies Allergy (Verified 10/08/23 09:48) Medication List - Last Reconciled 10/08/23 by Maricarmen Guadarrama MD cetirizine (Zyrtec) 10 mg PO DAILY PRN fluticasone furoate 100 mcg/actuation (Arnuity Ellipta) 1 inh inhalation Q24H minoxidil 2.5 mg PO DAILY Ventolin HFA 90 mcg/actuation (albuterol sulfate) 2 puffs inhalation QID PRN NS Tobacco use date assessed: 10/08/23 Dental Screening Dental Screen Date: 08/01/23 HPI 2 months follow up HPI Details Pt presents for follow-up of asthma. She has been using steroid inhaler daily and still needs to use Ventolin at least twice a day. Patient has intermittent cough at night and wheezing. She follows up with a counselor for chronic anxiety and was referred to a psychiatrist. Patient denies suicidal ideation. She complains of vaginal discomfort and yellowish discharge. [facility] Medical History GERD (gastroesophageal reflux disease) Annual physical exam Mild asthma Alopecia Surgical History No pertinent past surgical history Family History Father Medical history non-contributory Mother Medical history non-contributory Brother No problems noted. Brother No problems noted. Sister No problems noted. Son No problems noted. Social History Household Members Other:: lives alone, 1 son 6y old, smoke marijuana, Housing: House Patient Tobacco Use Status: Never used Tobacco e-Cigarette/Vaping Use: Never Used service: No Current occupational status: employed Cognitive needs: No Hearing needs: No Vision needs: No Questionnaire Thrive Questionnaire Date Thrive assessed: 08/01/23 JEET-7 AMB Questionnaire JEET-7 Date JEET - 7 assessed: 08/01/23 Source: Developed by Drs. Roger Rodríguez, Gladys Vital, Casey Edward and colleagues, with an educational radha from [employer]. Review of Systems Const All systems reviewed & are unremarkable except as noted in HPI and below ENT Reports no additional complaints Card Reports no additional complaints Resp Reports no additional complaints GI Reports no additional complaints Physical exam (Primary Care) Vital Signs: Last Vital Signs Pulse 69 10/08/23 09:48 BP 118/74 10/08/23 09:48 Pulse Ox 100 10/08/23 09:48 Oxygen Delivery Method Room Air 10/08/23 09:48 BMI result Body Mass Index 28.5 Tobacco/Smoking Status: Tobacco use Status Tobacco use date assessed 10/08/23 10/08/23 09:54 Patient Tobacco Use Status Never used Tobacco 10/08/23 09:54 e-Cigarette/Vaping Use Never Used 10/08/23 09:54 Thrive Assessment: Date of Thrive Assessment Date Thrive assessed 08/01/23 10/08/23 09:54 Const General: no acute distress HENMT Mouth: Normal oral and palatal mucosa present Eyes General: appearance normal, both eyes and all related structures Neck Neck: Yes supple Resp Effort & Inspection: normal respiratory effort Auscultation: clear to auscultation bilaterally Cardio Rhythm: regular rhythm Heart sounds: S1 normal heart sound present and S2 normal heart sound present GI Inspection: Yes normal to inspection Palpation (GI): Soft to palpation Auscultation: normal bowel sounds Results AMB Urinalysis, Automated UA Leukoctes 0 Neymar/uL Last Edit by TIMOTHY Beltran on 10/08/23 10:04 UA Nitrite Negative Last Edit by TIMOTHY Beltran on 10/08/23 10:04 UA Urobilinogen 0.2 mg/dL Last Edit by TIMOTHY Beltran on 10/08/23 10:04 UA Protein 0 mg/dL Last Edit by TIMOTHY Beltran on 10/08/23 10:04 UA pH 6.0 Last Edit by TIMOTHY Beltran on 10/08/23 10:04 UA Blood 0 Charles/uL Last Edit by TIMOTHY Beltran on 10/08/23 10:04 UA Specific [place] 1.020 Last Edit by TIMOTHY Beltran on 10/08/23 10:04 UA Ketone Negative Last Edit by TIMOTHY Beltran on 10/08/23 10:04 UA Bilirubin 0 mg/dL Last Edit by TIMOTHY Beltran on 10/08/23 10:04 UA Glucose 0 mg/dL Last Edit by TIMOTHY Beltran on 10/08/23 10:04 Results Reviewed Results Reviewed: Laboratory Last Values Urine pH (Auto) 6.0 10/08/23 09:59 Specific [place] (Auto) 1.020 10/08/23 09:59 Urine Protein (Auto) 0 mg/dL 10/08/23 09:59 Glucose (UA)(Auto) 0 mg/dL 10/08/23 09:59 Urine Ketones (Auto) Negative 10/08/23 09:59 Urine Blood (Auto) 0 Charles/uL 10/08/23 09:59 Urine Nitrite (Auto) Negative 10/08/23 09:59 Urine Bilirubin (Auto) 0 mg/dL 10/08/23 09:59 Urine Urobilinogen (Auto) 0.2 mg/dL 10/08/23 09:59 Leukocyte Esterase (Auto) 0 Neymar/uL 10/08/23 09:59 Assessment and Plan Assessment & Plan (1) Vaginitis: Comment: Testing for gonorrhea, chlamydia, bacterial vaginitis, vaginal Haven and trichomoniasis pending; urine Hcg negative. Code(s): N76.0 - Acute vaginitis Plan: Check BV swab (2) Anxiety: Comment: Established with a counselor Code(s): F41.9 - Anxiety disorder, unspecified Plan: Follow-up with a counselor (3) Asthma: Code(s): J45.909 - Unspecified asthma, uncomplicated Plan: Start Breo Ellipta 100 mcg and continue Ventolin as needed follow-up in 2 months Orders: Orders Bacterial Vaginosis Panel Today N76.0 - Acute vaginitis AMB Urinalysis Automated Today Z13.9 - Encounter for screening, unspecified Medications: New fluticasone furoate-vilanterol 100-25 mcg/dose (Breo Ellipta) 1 inh inhalation DAILY 60 ea 5RF Discontinued fluticasone furoate 100 mcg/actuation (Arnuity Ellipta) Discontinued Reason: Doctor's Order 1 inh inhalation Q24H 30 ea 0RF Coding Level of Care Code Est Pt Level 4 (77240) Diagnoses Vaginitis N76.0 Anxiety F41.9 Asthma J45.909
== END 2023-10-08 10:38 | disposition home or self-care (01) ==
PROVIDERS: PCP Internal Medicine; Visit Provider Internal Medicine
DX: N76.0 Acute vaginitis (principal); F41.9 Anxiety disorder, unspecified; J45.909 Unspecified asthma, uncomplicated
CPT/HCPCS: 81003; 99214

== ENCOUNTER 2023-10-08 10:29 | Outpatient (REF) | payer OTHER, SELFPAY ==
[2023-10-08 15:06] LABS: Bacterial Vaginosis PCR NEGATIVE (Negative); Candida Group PCR NOT DETECTED (Not Detect); Candida glab krusei PCR NOT DETECTED (Not Detect); Trichomonas vaginalis PCR NOT DETECTED (Not Detect)
[2023-10-08 16:25] LABS: Appearance Urine Clear; Color Urine Yellow; Glucose Urine UA Negative (Negative); Leukocyte Esterase Urine Moderate (2+) (Negative); Nitrite Urine Negative (Negative); PH 6.5 (5.0-9.0); UMIC TRIGGER UA YES; Urine Blood Negative (Negative); Urine Ketones Negative (Negative); Urine Protein Negative (Neg-Trace)
[2023-10-08 16:40] LABS: Bacteria Urine Trace (None Seen); Hyaline Casts Urine 0-2 /LPF (0-2); RBC Urine 0-2 /HPF (0-2); WBC Urine 0-5 /HPF (0-5)
== END 2023-10-08 10:30 | disposition home or self-care (01) ==
LOC: HO.LAB 10:29
PROVIDERS: Visit Provider Internal Medicine
DX: R30.0 Dysuria (principal); N76.0 Acute vaginitis
CPT/HCPCS: 0352U; 81001

== ENCOUNTER 2024-02-16 10:44 | Outpatient (REF) | payer OTHER, SELFPAY ==
--- NOTE | ~2024-02-16 | XR_ITS ---
EXAMINATION: XR CHEST CLINICAL INFORMATION: Cough. COMPARISON: None available. TECHNIQUE: 2 views of the chest were obtained. FINDINGS: The lungs are clear. The cardiomediastinal silhouette is normal in size. There is no pleural effusion or pneumothorax. No acute osseous abnormality. XR/XR chest 2V IMPRESSION: No acute cardiopulmonary findings. Electronically signed by: Julio Chandler MD 03/09/2024 02:14 PM [facility]
== END 2024-02-16 10:45 | disposition home or self-care (01) ==
LOC: HO.HMGCX 10:44
PROVIDERS: PCP Internal Medicine; Visit Provider Internal Medicine
DX: R05.9 Cough, unspecified (principal); R19.7 Diarrhea, unspecified; J45.909 Unspecified asthma, uncomplicated
CPT/HCPCS: 71046; 99212

== ENCOUNTER 2024-02-16 10:44 | Outpatient (AMB) | payer OTHER, SELFPAY ==
--- NOTE | 2024-02-16 10:45 | MHC.PC.OV ---
Vital Signs 02/16/24 10:46 Height 5 ft 7 in Weight 176 lb BMI 27.6 BP 128/74 Blood Pressure Location Rt brachial Position Sitting Pulse 71 Pulse Source Pulse Oximeter Pulse Oximetry (%) 97 Oxygen Delivery Method Room Air Intake Visit Reasons: Hospital follow up Allergies No Known Allergies Allergy (Verified 02/16/24 10:47) Medication List - Last Reconciled 02/16/24 by Maricarmen Guadarrama MD budesonide 180 mcg/actuation (Pulmicort Flexhaler) 1 inh inhalation DAILY cetirizine (Zyrtec) 10 mg PO DAILY PRN diazepam 5 mg PO BID PRN fluticasone furoate-vilanterol 100-25 mcg/dose (Breo Ellipta) 1 inh inhalation DAILY hydroxyzine HCl 10 mg PO TID levalbuterol tartrate 45 mcg/actuation (Xopenex HFA) 2 puffs inhalation Q4-6H PRN minoxidil 2.5 mg PO DAILY prednisone 20 mg PO DAILY Ventolin HFA 90 mcg/actuation (albuterol sulfate) 2 puffs inhalation QID PRN NS Tobacco use date assessed: 02/16/24 Dental Screening Dental Screen Date: 08/01/23 [facility] Hospital follow up HPI Details Patient presents for the follow-up of hospitalization at [facility] for pneumonia and asthma exacerbation 2 weeks ago. Patient completed course of Z-Bereket and Augmentin but reports persistent dry cough and some wheezing. She reports feeling chest tightness and dryness after using albuterol inhaler and Breo. Patient reports abdominal discomfort and watery diarrhea for the last week started while taking antibiotics but persisted. She denies hematochezia melena nausea vomiting fever or chills [facility] Medical History GERD (gastroesophageal reflux disease) Annual physical exam Mild asthma Alopecia Surgical History No pertinent past surgical history Family History Father Medical history non-contributory Mother Medical history non-contributory Brother No problems noted. Brother No problems noted. Sister No problems noted. Son No problems noted. Social History Household Members Other:: lives alone, 1 son 6y old, smoke marijuana, Housing: House Patient Tobacco Use Status: Never used Tobacco e-Cigarette/Vaping Use: Never Used service: No Current occupational status: employed Cognitive needs: No Hearing needs: No Vision needs: No Questionnaire Thrive Questionnaire Date Thrive assessed: 08/01/23 JEET-7 AMB Questionnaire JEET-7 Date JEET - 7 assessed: 08/01/23 Source: Developed by Drs. Roger Rodríguez, Gladys Vital, Casey Edward and colleagues, with an educational radha from [employer]. Review of Systems Const All systems reviewed & are unremarkable except as noted in HPI and below ENT Reports no additional complaints Card Reports no additional complaints Resp Reports no additional complaints GI Reports no additional complaints Reports no additional complaints Physical exam (Primary Care) Vital Signs: Last Vital Signs Pulse 71 02/16/24 10:46 BP 128/74 02/16/24 10:46 Pulse Ox 97 02/16/24 10:46 Oxygen Delivery Method Room Air 02/16/24 10:46 BMI result Body Mass Index 27.6 Tobacco/Smoking Status: Tobacco use Status Tobacco use date assessed 02/16/24 02/16/24 10:52 Patient Tobacco Use Status Never used Tobacco 02/16/24 10:52 e-Cigarette/Vaping Use Never Used 02/16/24 10:46 Thrive Assessment: Date of Thrive Assessment Date Thrive assessed 08/01/23 02/16/24 10:46 Const General: no acute distress HENMT Head: Yes normal to inspection Mouth: Normal oral and palatal mucosa present Eyes General: appearance normal, both eyes and all related structures Resp Effort & Inspection: normal respiratory effort Auscultation: wheezes Cardio Rhythm: regular rhythm Heart sounds: S1 normal heart sound present and S2 normal heart sound present GI Inspection: Yes normal to inspection Palpation (GI): Soft to palpation Percussion: Yes normal to percussion Auscultation: normal bowel sounds Coding Level of Care Code Est Pt Level 4 (90962) Diagnoses Cough R05.9 Diarrhea R19.7 Asthma J45.909 Assessment & Plan Assessment & Plan (1) Cough: Code(s): R05.9 - Cough, unspecified Category: Medical Plan: Repeat chest x-ray (2) Diarrhea: Code(s): R19.7 - Diarrhea, unspecified Category: Medical Plan: Stool for C diff (3) Asthma: Code(s): J45.909 - Unspecified asthma, uncomplicated Category: Medical Plan: Prednisone 20 mg for seven days is prescribed and Breo will be changed to to Pulmicort and pt will use Xopenex instead of albuterol. Referred to pulmonology Orders: Orders XR chest 1V Today R05.9 - Cough, unspecified CDiff Gene PCR Today R05.9 - Cough, unspecified, R19.7 - Diarrhea, unspecified Referrals Pulmonology Referral J45.909 - Unspecified asthma, uncomplicated Medications: New prednisone 20 mg PO DAILY 7 tabs 0RF budesonide 180 mcg/actuation (Pulmicort Flexhaler) 1 inh inhalation DAILY 1 ea 2RF levalbuterol tartrate 45 mcg/actuation (Xopenex HFA) 2 puffs inhalation Q4-6H PRN 15 grams 0RF shortness of breath Discontinued fluticasone furoate-vilanterol 100-25 mcg/dose (Breo Ellipta) Discontinued Reason: Doctor's Order 1 inh inhalation DAILY 60 ea 5RF
[2024-02-16 10:46] VITALS: BP 128/74; PULSE 71; O2SAT 97; BMI 27.6
== END 2024-02-16 11:18 | disposition home or self-care (01) ==
LOC: HO.HMCC 10:44
PROVIDERS: PCP Internal Medicine; Visit Provider Internal Medicine
DX: R05.9 Cough, unspecified (principal); R19.7 Diarrhea, unspecified; J45.909 Unspecified asthma, uncomplicated

== ENCOUNTER 2024-02-21 09:39 | Outpatient (REF) | payer OTHER, SELFPAY ==
[2024-02-21 12:33] LABS: CDiff Gene PCR NEGATIVE (Negative)
== END 2024-02-21 09:40 | disposition home or self-care (01) ==
LOC: HO.HMGCLNP 09:39
PROVIDERS: PCP Internal Medicine; Visit Provider Internal Medicine
DX: R19.7 Diarrhea, unspecified (principal); R05.9 Cough, unspecified
CPT/HCPCS: 87493

== ENCOUNTER 2024-03-09 09:44 | Outpatient (REF) | payer OTHER, SELFPAY ==
--- NOTE | ~2024-03-09 | XR_ITS ---
EXAMINATION: XR CHEST CLINICAL INFORMATION: Asthma. COMPARISON: None available. TECHNIQUE: 2 views of the chest were obtained. FINDINGS: The lungs are clear. The cardiomediastinal silhouette is normal in size. There is no pleural effusion or pneumothorax. No acute osseous abnormality. XR/XR chest 2V IMPRESSION: No acute cardiopulmonary findings. Electronically signed by: Julio Chandler MD 03/09/2024 02:14 PM [facility] [place]
[2024-03-09 10:34] LABS: MANUAL DIFF FLAG NO
[2024-03-09 11:19] LABS: Basophils Absolute Auto 0.1 X10*3/uL (0.0-0.2); Eosinophils Absolute Auto 0.6 X10*3/uL (0.0-0.4); Eosinophils Percent Auto 9.6 % (0-4); Hematocrit 40.2 % (37.0-47.0); Hemoglobin 13.8 g/dl (12.0-16.0); Imm Gran Abs Auto 0.02 X10*3/uL (0.00-0.03); Imm Gran Pct Auto 0.3 % (0.0-0.4); Lymphocytes Percent Auto 32.7 % (20-40); Mean Corpuscular HGB Conc 34.3 g/dl (31.0-35.0); Mean Corpuscular Hemoglobin 31.9 pg (27.0-33.0); Mean Corpuscular Volume 92.8 fL (80.0-98.0); Mean Platelet Volume 10.6 fL (9.4-12.3); Monocytes Absolute Auto 0.7 X10*3/uL (0.1-1.2); Monocytes Percent Auto 11.2 % (2-11); Neutrophils Absolute Auto 2.7 x10*3/uL (2.0-8.3); Neutrophils Percent Auto 45.2 % (45-73); Platelet Count 279 X10*3/uL (160-400); Red Blood Count 4.33 X10*6/uL (4.20-5.50); Red Cell Distribution Width 12.9 % (11.0-16.0); White Blood Count 6.1 X10*3/uL (4.8-10.8)
[2024-03-11 21:18] LABS: Class Alternaria alternata 0; Class Aspergillus fumigatus 0; Class Bermuda Grass 0/1; Class Birch 0; Class Cat Dander 2; Class Cladosporium herbarum 0; Class Cockroach 0/1; Class Common Ragweed 0/1; Class Cottonwood 0; Class Derm. pterony 2; Class Dermatophagoides farinae 1; Class Dog Dander 4; Class Elm 0; Class Maple Box Elder 0; Class Mountain Cedar 0/1; Class Mouse Urine Protein 0/1; Class Mugwort 0; Class Oak 0/1; Class Penicillium crysogenum 0; Class Rough Pigweed 0; Class Sheep Sorrel 0; Class Sycamore 0/1; Class Timothy Grass 0/1; Class Walnut Tree 0; Class White Ash 0; Class White Mulberry 0; D001 IgE D pteronyssinus 0.73 kU/L; D002 - IgE D farinae 0.63 kU/L; E001 - IgE Cat Dander 0.71 kU/L; E072-IgE Mouse Urine 0.17 kU/L; G006 - IgE Timothy Grass 0.26 kU/L; Immunoglobulin E 426 kU/L (<OR=114); M001 IgE Penicillium chrysogen <0.10 kU/L; M002 - IgE Cladosporium herbar <0.10 kU/L; M003 - IgE Aspergillus fumigat <0.10 kU/L; M006 - IgE Alternaria alternat <0.10 kU/L; T001 IgE Maple/Box Elder <0.10 kU/L; T003 IgE Common Silver Birch <0.10 kU/L; T007 - IgE Oak, White 0.11 kU/L; T008 IgE Elm, American <0.10 kU/L; T010 - IgE Walnut <0.10 kU/L; T011 - IgE Maple Leaf Sycamore 0.11 kU/L; T014 - IgE Cottonwood <0.10 kU/L; T015 - IgE Ash, White <0.10 kU/L; T070 - IgE White Mulberry <0.10 kU/L; W001 - IgE Ragweed, Short 0.27 kU/L; W006 - IgE Mugwort <0.10 kU/L; W014 IgE Pigweed, Common <0.10 kU/L; W018 IgE Sheep Sorrel <0.10 kU/L
== END 2024-03-09 09:45 | disposition home or self-care (01) ==
LOC: HO.XRAY 09:44
PROVIDERS: PCP Internal Medicine; Visit Provider Internal Medicine Pulmonary Disease
DX: J45.909 Unspecified asthma, uncomplicated (principal)
CPT/HCPCS: 36415; 71046; 82785; 85025; 86003; 99202

== ENCOUNTER 2024-03-09 09:44 | Outpatient (AMB) | payer OTHER, SELFPAY ==
[2024-03-09 09:45] VITALS: BP 108/66; PULSE 73; O2SAT 98; BMI 27.9
--- NOTE | 2024-03-09 09:45 | A.OFFVIS_ITS ---
Vital Signs 03/09/24 09:45 Height 5 ft 7 in Weight 178 lb BMI 27.9 BP 108/66 Blood Pressure Location Rt brachial Position Sitting Pulse 73 Pulse Source Doppler Pulse Oximetry (%) 98 Oxygen Delivery Method Room Air Intake Visit Reasons: asthma Allergies No Known Allergies Allergy (Verified 02/16/24 10:47) HPI HPI asthma: Details: 28-year-old lady, nonsmoker, with underlying history of asthma since childhood with prior hospitalization requiring ventilatory support, otherwise usually controlled on albuterol MDI/nebs, with recent bronchitis versus community- acquired pneumonia approximately 1 months prior and resultant significant worsening in asthma controlled. She continues to complain of cough productive of whitish sputum, wheezing, and dyspnea. She has been using albuterol MDI. Patient does complain of year round environmental allergies. She denies family history of lung disease. She is employed without exposure to industrial dusts. [facility] Medical History GERD (gastroesophageal reflux disease) Annual physical exam Mild asthma Alopecia Surgical History No pertinent past surgical history Family History Father Medical history non-contributory Mother Medical history non-contributory Brother No problems noted. Brother No problems noted. Sister No problems noted. Son No problems noted. Social History Household Members Other:: lives alone, 1 son 6y old, smoke marijuana, Housing: House Patient Tobacco Use Status: Never used Tobacco e-Cigarette/Vaping Use: Never Used service: No Current occupational status: employed Cognitive needs: No Hearing needs: No Vision needs: No Review of Systems Const Denies daytime sleepiness, Denies excessive sweating, Denies fatigue, Denies fever(s), Denies lethargy, Denies malaise, Denies night sweats, Denies snoring and Denies weight loss Eyes Denies blurry vision and Denies itchy eyes ENT Denies nasal congestion, Denies post nasal drip, Denies sinus pain, Denies sinus pressure and Denies other ( Thrush) Card Denies chest pain, Denies pedal edema, Denies dyspnea, Denies orthopnea and Denies paroxysmal nocturnal dyspnea Resp Reports cough, Denies hemoptysis, Reports excessive phlegm production, Denies dyspnea, Denies snoring and Reports wheezing GI Denies abdominal pain and Denies heartburn Musc Denies myalgias, Denies arthralgias and Denies joint swelling Skin/Breast Denies rash Neuro Denies memory loss and Denies seizure-like activity Psych Denies abnormal sleep pattern, Denies anxiety and Denies memory loss Endo Denies excessive sweating, Denies fatigue and Denies heat intolerance Daniel/Lymph Denies easy bruising Aller/Immun Denies itchy eyes, Denies seasonal rhinorrhea and Reports wheezing Physical Exam Vital Signs: Last Vital Signs Pulse 73 03/09/24 09:45 BP 108/66 03/09/24 09:45 Pulse Ox 98 03/09/24 09:45 Oxygen Delivery Method Room Air 03/09/24 09:45 BMI result Body Mass Index 27.9 Const General: no acute distress and alert Nutritional Appearance: not obese Orientation/consciousness: Other orientation findings ( oriented) HEENT Head: Yes atraumatic Eyes General: appearance normal, both eyes and all related structures Sclerae: sclerae normal EOM: EOMs intact bilaterally Neck Neck: Yes supple Lymphatic: no lymphadenopathy noted Resp Effort & Inspection: normal respiratory effort and no use of accessory muscles Auscultation: clear to auscultation bilaterally Cardio Rate: regular rate Rhythm: regular rhythm Heart sounds: no gallops, no murmurs and no rubs Skin General skin exam: other ( warm) Extrem General: No clubbing, No cyanosis and No edema Assessment & Plan Assessment & Plan (1) Asthma: Code(s): J45.909 - Unspecified asthma, uncomplicated Category: Medical Plan: Severe persistent asthma suboptimally controlled on albuterol MDI. Will start on Breo and obtain full PFT. Will treat residual bronchitic symptoms with a course of Levaquin and obtain chest x-ray. (2) Environmental allergies: Code(s): Z91.09 - Other allergy status, other than to drugs and biological substances Category: Medical Plan: Will obtain IgE level, CBC with differential, and RAST panel for further evaluation. Orders: Orders PFT pulmonary function test Today J45.909 - Unspecified asthma, uncomplicated XR chest 2V Today J45.909 - Unspecified asthma, uncomplicated Resp Allergy Profile Region I Today J45.909 - Unspecified asthma, uncomplicated Complete Blood Count Auto Diff Today J45.909 - Unspecified asthma, uncomplicated Medications: New fluticasone furoate-vilanterol 200-25 mcg/dose (Breo Ellipta) 1 inh inhalation DAILY 1 ea 6RF J45.909 - Unspecified asthma, uncomplicated levofloxacin 750 mg PO DAILY 7 tabs 0RF J45.909 - Unspecified asthma, uncomplicated Coding Level of Care Code New Pt Level 4 (86053) Diagnoses Asthma J45.909 Environmental allergies Z91.09
--- OUTSIDE RECORDS SUMMARY | 2024-03-10 19:33 | XMS_ITS | Continuity of Care Document ---
Author Organization [facility] Address [address] [place] [id number] Care Team Providers Care Cake Decorator Name Role Phone Maricarmen Guadarrama MD Primary Care Physician [phone] Encounter [facility] Date(s): 02/07/24 - 02/09/[address] [id number] Discharge Disposition: A-D/C Home Attending Physician: Micheline SOLOMON, Kori Admitting Physician: Basia Hall MD, Caleb Camara Referring Physician: Not on Staff, Referring MD Allergies, Adverse Reactions, Alerts Substance Reaction Severity Status Pollen Active Immunizations Given and Recorded Vaccine Date Status Refusal Reason tetanus/diphtheria/pertussis, acel(Tdap) 08/05/13 Given influenza virus vaccine, inactivated 05/27/13 Give n Medications ibuprofen 400 mg oral tablet 400 mg, 1, tablet, By Mouth, 3 times a day, PRN, for 3 days, with food or milk, # 9 tablet, Refills0, Tot. Refills 0, Acute 02/10/24 10:47:00 EST, Pain , Moderate, 02/07/24 10:47:00 EST, Route to Pharmacy Electronically, [facility], Par... Start Date: 02/07/24 Stop Date: 02/10/24 Status: Ordered Liletta 52 mg intrauterine device 1 each = 52 mg, Vaginally, Once, IUD, Maintenance, 02/06/22 12:21:00 EST, ; Start Date: 02/06/22 Status: Ordered predniSONE 20 mg oral tablet = 40 mg, By Mouth, Daily, for 4 days, # 4 tablet, 0 Refills, Acute 02/13/24 15:12:00 EST, 02/09/24 15:12:00 EST, Tablet, [facility][id number], Partial fill upon patient request if the prescription is for a schedule II opioid drug., 170, cm, 02/07/24 6:4... Start Date: 02/09/24 Stop Date: 02/13/24 Status: Ordered Tylenol 325 mg oral tablet 650 mg, By Mouth, Every 6 hours, PRN, Refills 0, Maintenance, Temperature, 02/07/24 10:48:00 EST, Partial fill upon patient request if the prescription is for a schedule II opioid drug. Start Date: 02/07/24 Status: Ordered Ventolin HFA 108 mcg/inh inhalation aerosol with adapter 2 puffs = 180 mcg, Inhalation, Every 6 hours, PRN Wheezing/Shortness of Breath, # 6.7 Gm, 0 Refills, Maintenance, 02/08/22 13:03:00 EST, Inhaler, [facility], Partial fill upon patient request if the prescription is for a schedule II opio... Start Date: 02/08/22 Status: Ordered Problem List Condition Confirmation Course Effective Dates Status Health St atus Informant Asthma Confirmed Active 2, currently Confirmed Active Vital Signs Most recent to oldest [Reference Range]: 1 2 3 Oxygen Saturation [94-100 %] 100 % (02/09/24 3:13 PM) 100 % (02/09/24 10:15 AM) 100 % (02/09/24 6:37 AM) Pulse Rate [55-90 bpm] 80 bpm (02/09/24 3:13 PM) 80 bpm (02/09/24 10:15 AM) 68 bpm (02/09/24 6:37 AM) Blood Pressure [90-138/55-84 mm Hg] 145/78mm Hg *H* (02/09/24 3:13 PM) 144/97mm Hg *H* (02/09/24 10:15 AM) 137/83mm Hg (02/09/24 6:37 AM) Respiratory Rate [16-30 br/min] 20 br/min (02/09/24 3:13 PM) 20 br/min (02/09/24 10:15 AM) 20 br/min (02/09/24 6:37 AM) Temperature [96.8-100.4 DegF] 98.0 DegF (02/09/24 3:13 PM) 98.0 DegF (02/09/24 10:15 AM) 98.0 DegF (02/09/24 6:37 AM) Mode of Delivery (Oxygen) Room air (02/09/24 3:13 PM) Room air (02/09/24 10:15 AM) Room air (02/09/24 6:37 AM) Blood pressure sites Arm, right (02/09/24 3:13 PM) Arm, right (02/09/24 10:15 AM) Arm, right (02/09/24 6:37 AM) Temperature Route Oral (02/09/24 3:13 PM) Oral (02/09/24 10:15 AM) Oral (02/09/24 6:37 AM) Social History Social History Type Response Smoking Status Never (less than 100 in lifetime) entered on: 01/02/21 Sex Admission evaluation note * Dario Ramirez: PERFORM Event Display: Admission Note Authored Date: Patient: ??BONNY GALVAN ? Age:??28 Years?Sex:??Female?:??1995?? Chief Complaint/Reason for Consultation + blood cx History of Present Illness 28 yoF??w/o pertinent medical Hx,??dc'd earlier today on oral abx??for CAP, called back 2/2 +blood culture (gram + coccci), clinically pt feeling much better, vitals wnl. Admitted to obs for bacteremia pending repeat cultures and sensitivities. denies fever, CP, SOB, abdominal pain, bowel or bladder complaints. Review of Systems CONSTITUTIONAL: ??Denies any fever, chills, changes to weight or fatigue. EYES: Denies any changes to vision, burning or diplopia. HEENT: Denies any ACHARYA, nasal d/c, nose bleeds, changes to voice, vertigo, photophobia, hearing changes or dental problems. CV: Denies any CP, orthopnea, PND, edema, palpitations. PULM: Denies any SOB, wheezing, cough or production of phlegm. ABD: Denies any abdominal pain, N/V/D, heartburn, PRBPR, melena, or changes to bowel habits. : Denies any changes to frequency. ??Denies dysuria, urgency, straining, hematuria, incontinence.?? MS: Denies any joint or muscle pain, falls or changes to gait. NEURO: Denies any weakness, numbness, changes to speech confusion or memory loss. SKIN: Denies any rashes or lesions. ?? PSYCH: Denies any depression or anxiety. SIGECAPS negative. FUNCTIONAL: At baseline the patient is able to ambulate independently?? Objective Vital Signs?? Temperature: 97.4 DegF (02/07/24 20:10:00) Temperature Route: Oral (02/07/24 20:10:00) Pulse Rate: 72 bpm (02/07/24 20:10:00) Respiratory Rate: 19 br/min (02/07/24 20:10:00) Systolic Blood Pressure: 124 mm Hg (02/07/24 20:10:00) Diastolic Blood Pressure: 81 mm Hg (02/07/24 20:10:00) Blood pressure sites: Arm, right (02/07/24 20:10:00) Mean Arterial Pressure: 95 mm Hg (02/07/24 20:10:00) Pulse Pressure: 43 mm Hg (02/07/24 20:10:00) Oxygen Saturation: 100 % (02/07/24 20:10:00) Mode of Delivery (Oxygen): Room air (02/07/24 20:10:00) Early Warning Score: 2 (02/07/24 20:12:30) ? Physical Exam General: 28??year old female??lies in bed comfortably in no acute distress HEENT: NCAT, moist oral mucosa, good dentition, oropharynx without erythema Card: RRR no murmur, non displaced PMI, no JVD, 2+ radial pulse B/L Resp: CTA B/L, no wheezing, rales, ronchi Abdomen: soft and non tender, bowel sounds WNL Extremities: no pitted edema B/L lower extremities Skin: Without rashes or lesions, good turgor Hem/Lymph: without bruising or lymphadenopathy Psych: appropriate affect Neuro: A&OX3, no focal motor deficits Assessment/Plan Assessment:??28 yoF??w/o pertinent medical Hx,??dc'd earlier today on oral abx??for CAP, called back 2/2 +blood culture (gram + cocci), clinically pt feeling much better, vitals wnl. Admitted to obs for bacteremia pending repeat cultures and sensitivities. ?? Bacteremia (R78.81):??blood cx's drawn 02/05- bottle w/ gram + cocci. clinically pt non septic appearing, feeling better, no fever. suspect likely contaminant??(skin flo). However, will tx??empirically??pending repeat cultures and sensitivities. ?? Plan Rpt??blood cx f/u cultures and sensitivities On Ceft??+ vanc??+ azith (CAP, gpc??bacteremia)?? daily cbc +bmp ? VTE Prophylaxis:??pneumoboots ?VTE Prophylaxis Assessment:??VTE Prophylaxis Ordered ?? Discharge Planning:??home in 1-2 days ?? Code Status:??full code?Order Code Status:??Code Status Ordered ? Estimated Discharge Date Estimated Discharge Date - Ordered?-- Anticipated Date: 02/08/24, 02/07/24 21:37:00 EST ?? Histories Allergies Allergies ?(Active and Proposed Allergies Only) Pollen? (Severity: Unknown severity, Onset: Unknown) ? Past Medical History/Problem List Active Problems(2) Asthma 2, currently ? Past Surgical History Nexplanon in place: 10/16/13 Vaginal delivery ? Social History Alcohol Details:??Use: Never. Details:??Use: denies. Employment/School Details:??Status: Employed. ??Other: [employer]. Exercise Details:??Self assessment: Good condition. Home/Environment Details:??Living situation: Home/Independent. ??Lives with: Children. Nutrition/Health Details:??Diet: Regular. Sexual Details:??Sexually involved in last 6 months: Yes. ??Gender identity: Identifies as female. ??Self described orientation: Straight or heterosexual. Substance Abuse Details:??Use: Never. Details:??Use: Current. ??Type: Marijuana. Tobacco Details:??Use: Never (less than 100 in lifetime). Details:??Use: denies. Electronic Cigarette/Vaping Details:??Electronic Cigarette Use: Never. ? Family History Father: Unknown ? Medications Home Medications Acetaminophen (Tylenol 325 mg oral tablet)?650?Milligram?By Mouth?Every 6 hours?as needed?Temperature Albuterol (Ventolin HFA 108 mcg/inh inhalation aerosol with adapter)?2?puff(s)?180?Microgram?Inhalation?Every 6 hours?as needed?Wheezing/Shortness of Breath Amoxicillin-Clavulanate (Augmentin 875 mg-125 mg oral tablet)?1?tab(s)?By Mouth?Every 12 hours?for 4?Days Azithromycin (azithromycin 500 mg oral tablet)?1?tab(s)?500?Milligram?By Mouth?Daily?for 4?Days Ibuprofen (ibuprofen 400 mg oral tablet)?400?Milligram?1?tablet?By Mouth?3 times a day?as needed?for 3?Days?with food or milk?Pain , Moderate Levonorgestrel (Liletta 52 mg intrauterine device)?1?Each?52?Milligram?Vaginally?Once?IUD Oxycodone (oxyCODONE 5 mg oral tablet)?5?Milligram?1?tablet?By Mouth?Every 6 hours?as needed?for 2?Days?Pain , Severe ? Results Recent Labs BACTERIOLOGY Blood Culture Results Preliminary report ()?? 02/06/2024 17:06 Blood Culture Isolate 1 Comment ()?? 02/06/2024 17:06 Blood Cult 2 Results Preliminary report (Abnormal)?? 02/06/2024 17:06 Reflex to Rapid ID, TANNA, Culture 2 Comment ()?? 02/06/2024 17:06 Blood Culture 2 Isolate 1 Gram positive cocci (Abnormal)?? 02/06/2024 17:06 A calcoaceticus-baumannii comp,Culture 2 Not Detected ()?? 02/06/2024 17:06 Bacteroides fragilis, Culture 2 Not Detected ()?? 02/06/2024 17:06 Enterobacterales, Culture 2 Not Detected ()?? 02/06/2024 17:06 Enterobacter cloacae complex, Culture 2 Not Detected ()?? 02/06/2024 17:06 Escherichia coli, Culture 2 Not Detected ()?? 02/06/2024 17:06 Klebsiella aerogenes, Culture 2 Not Detected ()?? 02/06/2024 17:06 Klebsiella oxytoca, Culture 2 Not Detected ()?? 02/06/2024 17:06 Klebsiella pneumoniae group, Culture 2 Not Detected ()?? 02/06/2024 17:06 Proteus spp., Culture 2 Not Detected ()?? 02/06/2024 17:06 Salmonella spp., Culture 2 Not Detected ()?? 02/06/2024 17:06 Serratia marcescens, Culture 2 Not Detected ()?? 02/06/2024 17:06 Haemophilus influenzae, Culture 2 Not Detected ()?? 02/06/2024 17:06 Neisseria meningitidis, Culture 2 Not Detected ()?? 02/06/2024 17:06 Pseudomonas aeruginosa, Culture 2 Not Detected ()?? 02/06/2024 17:06 Stenotrophomonas maltophilia, Culture 2 Not Detected ()?? 02/06/2024 17:06 Enterococcus faecalis, Culture 2 Not Detected ()?? 02/06/2024 17:06 Enterococcus faecium, Culture 2 Not Detected ()?? 02/06/2024 17:06 Listeria monocytogenes, Culture 2 Not Detected ()?? 02/06/2024 17:06 Staphylococcus spp., Culture 2 DETECTED (Abnormal)?? 02/06/2024 17:06 Staphylococcus aureus, Culture 2 Not Detected ()?? 02/06/2024 17:06 Staphylococcus epidermidis, Culture 2 Not Detected ()?? 02/06/2024 17:06 Staphylococcus lugdunensis, Culture 2 DETECTED (Abnormal)?? 02/06/2024 17:06 Streptococcus spp., Culture 2 Not Detected ()?? 02/06/2024 17:06 Streptococcus agalactiae, Culture 2 Not Detected ()?? 02/06/2024 17:06 Streptococcus pneumoniae, Culture 2 Not Detected ()?? 02/06/2024 17:06 Streptococcus pyogenes, Culture 2 Not Detected ()?? 02/06/2024 17:06 Haven albicans, Culture 2 Not Detected ()?? 02/06/2024 17:06 Haven auris, Culture 2 Not Detected ()?? 02/06/2024 17:06 Haven glabrata, Culture 2 Not Detected ()?? 02/06/2024 17:06 Haven krusei, Culture 2 Not Detected ()?? 02/06/2024 17:06 Haven parapsilosis, Culture 2 Not Detected ()?? 02/06/2024 17:06 Haven tropicalis, Culture 2 Not Detected ()?? 02/06/2024 17:06 Cryptococcus neoformans/gattii,Culture 2 Not Detected ()?? 02/06/2024 17:06 IMP (Carbapenemases), Culture 2 Not applicable ()?? 02/06/2024 17:06 KPC (Carbapenemases), Culture 2 Not applicable ()?? 02/06/2024 17:06 OXA-48-like (Carbapenemases), Culture 2 Not applicable ()?? 02/06/2024 17:06 NDM (Carbapenemases), Culture 2 Not applicable ()?? 02/06/2024 17:06 VIM (Carbapenemases), Culture 2 Not applicable ()?? 02/06/2024 17:06 mcr-1 (Colistin Resistance), Culture 2 Not applicable ()?? 02/06/2024 17:06 CTX-M (ESBL), Culture 2 Not applicable ()?? 02/06/2024 17:06 mecA/C(Methicillin Resistance),Culture 2 Not Detected ()?? 02/06/2024 17:06 mecA/C and MREJ (MRSA), Culture 2 Not applicable ()?? 02/06/2024 17:06 Marcos/B (Vancomycin Resistance),Culture 2 Not applicable ()?? 02/06/2024 17:06 ?? BLOOD COUNT & DIFF WBC 13.2 k/mm3 (High)?? 02/07/2024 19:31 RBC 3.94 m/mm3 (Low)?? 02/07/2024 19:31 Hgb 12.6 Gm/dL ()?? 02/07/2024 19:31 Hct 37.0 % ()?? 02/07/2024 19:31 MCV 93.9 femtoliters ()?? 02/07/2024 19:31 MCH 32.0 pg ()?? 02/07/2024 19:31 MCHC 34.1 Gm/dL ()?? 02/07/2024 19:31 Platelet Count 244 k/mm3 ()?? 02/07/2024 19:31 RDW-SD 45.0 femtoliters ()?? 02/07/2024 19:31 MPV 9.7 femtoliters ()?? 02/07/2024 19:31 Nucleated RBC (Automated) 0.0 #/100 WBC'S ()?? 02/07/2024 19:31 Abs. NRBC 0.0 k/mm3 ()?? 02/07/2024 19:31 ?? CHEM GENERAL Sodium 139 mmol/L ()?? 02/07/2024 19:31 Potassium 3.9 mmol/L ()?? 02/07/2024 19:31 Chloride 107 mmol/L ()?? 02/07/2024 19:31 Bicarbonate Level 22 mmol/L ()?? 02/07/2024 19:31 Anion Gap 10 ()?? 02/07/2024 19:31 Glucose Level 114 mg/dL (High)?? 02/07/2024 00:50 BUN 9 mg/dL ()?? 02/07/2024 19:31 Creatinine-Blood 0.87 mg/dL ()?? 02/07/2024 19:31 Estimated GFR Creatinine 92 ML/MIN/1.73 M2 ()?? 02/07/2024 19:31 Calcium 8.1 mg/dL (Low)?? 02/07/2024 00:50 Phosphorus 2.9 mg/dL ()?? 02/07/2024 00:50 Magnesium 1.9 mg/dL ()?? 02/07/2024 00:50 ?? MISC. CHEMISTRY Procalcitonin 0.15 ng/mL ()?? 02/05/2024 21:04 ?? URINE OTHER Est Creatinine Clearance 85.65 mL/min ()?? 02/07/2024 01:33 ?? VIROLOGY Adenovirus by PCR NEGATIVE ()?? 02/05/2024 21:01 Coronavirus 229E by PCR (not COVID-19) NEGATIVE ()?? 02/05/2024 21:01 Coronavirus HKU1 by PCR (not COVID-19) NEGATIVE ()?? 02/05/2024 21:01 Coronavirus NL63 by PCR (not COVID-19) NEGATIVE ()?? 02/05/2024 21:01 Coronavirus OC43 by PCR (not COVID-19) NEGATIVE ()?? 02/05/2024 21:01 Human Metapneumovirus by PCR NEGATIVE ()?? 02/05/2024 21:01 Rhinovirus/Enterovirus by PCR NEGATIVE ()?? 02/05/2024 21:01 Influenza A by PCR NEGATIVE ()?? 02/05/2024 21:01 Influenza B by PCR NEGATIVE ()?? 02/05/2024 21:01 Parainfluenza 1 by PCR NEGATIVE ()?? 02/05/2024 21:01 Parainfluenza 2 by PCR NEGATIVE ()?? 02/05/2024 21:01 Parainfluenza 3 by PCR NEGATIVE ()?? 02/05/2024 21:01 Parainfluenza 4 by PCR NEGATIVE ()?? 02/05/2024 21:01 RSV by PCR NEGATIVE ()?? 02/05/2024 21:01 Bordetella Pertussis by PCR NEGATIVE ()?? 02/05/2024 21:01 Chlamydophila Pneumoniae by PCR NEGATIVE ()?? 02/05/2024 21:01 Mycoplasma Pneumoniae by PCR NEGATIVE ()?? 02/05/2024 21:01 COVID-19 (SARS-CoV-2) by PCR NEGATIVE ()?? 02/05/2024 21:01 Bordetella Parapertussis by PCR NEGATIVE ()?? 02/05/2024 21:01 ? Hospital Progress note * Christine Camacho RN: PERFORM, SIGN, VERIFY Event Display: Progress Note Hospital Authored Date: Patient: BONNY GALVAN Age: 28 years Sex: Female : 1995 Associated Diagnoses: None Author: Christine Camacho RN Findings Evaluation Patient AxOx4; denies any dizziness, nausea, pain, or paresthesia in extremities. Patient endorses headache at 10/07; managed with PRN Tylenol 650 mg and PRN Oxycodone 5 mg admin both at 2050, effectspending. L FA peripheral IV access: painful with IV Vanco admin; infusion stopped; no infiltration noted; IV nurse paged to replace the IV; covering Kumar Bolden notified at 2157. Skin intact; extremities warm and dry; no edema noted. Palpable radial and pedal pulses, bilaterally. Patient afebrile; normotensive. Lung sounds clear; oxygen sats 100% on RA. Patient endorsing mild SOB and non-productive cough; declined her PRN Albuterol neb tx for now. Cough managed with PRN cough syrup admin at 20 51, effects pending. Abdomen soft; non-tender; + BS. LBM-02/07/24. Patient ambulating independently;voiding in the bathroom; steady gait noted. Call solorio and personal items in reach. For full assessment details, see CIS. Plan: IV and PO antibiotics empirically until 2nd set of BC results come back;monitor WBC; monitor the previous IV site access; symptom management. Will continue monitoring the patient. . Discharge Information Case Management Discharge Plan : Case Management Discharge Plan Data 02/07/2024 12:15 EST Discharge Level of Care at Discharge Home[facility] * Conrad SOLOMON, [place]: PERFORM Event Display: Progress Note Hospital Authored Date: Patient: ??BONNY GALVAN ? Age:??28 Years?Sex:??Female?:??1995?? Subjective Patient seen and examined at bedside, overall feeling well, denies fevers or shortness of breath. Repeat blood cultures are in process.?? Initial blood cultures positive for staph lugdunensis Review of Systems Denies fevers, shortness of breath or any other complaints Objective Vital Signs?? Temperature: 97.1 DegF (02/08/24 10:02:00) Temperature Route: Oral (02/08/24 10:02:00) Pulse Rate: 64 bpm (02/08/24 10:02:00) Respiratory Rate: 18 br/min (02/08/24 10:02:00) Systolic Blood Pressure:??140 mm Hg??High (02/08/24 10:02:00) Diastolic Blood Pressure: 82 mm Hg (02/08/24 10:02:00) Blood pressure sites: Arm, right (02/08/24 03:00:00) Mean Arterial Pressure: 101 mm Hg (02/08/24 10:02:00) Pulse Pressure: 58 mm Hg (02/08/24 10:02:00) Oxygen Saturation: 100 % (02/08/24 10:02:00) Mode of Delivery (Oxygen): Room air (02/08/24 10:02:00) Early Warning Score: 2 (02/08/24 12:27:24) ? Ventilator Settings?? No qualifying data available. ?? Intake/Output? 02/06 17:54 02/07 07:00 02/06 07:00 02/05 07:00 02/04 07:00 ?? 02/07 13:30 02/07 13:30 02/07 06:59 02/06 06:59 02/05 06:59 Intake ?400.0 ?200 ?200 ?0 ?0 Output ?0 ?0 ?0 ?0 ?0 Net Total ?400.0 ?200 ?200 ?0 ?0 ? Physical Exam General: 28??year old female??lies in bed comfortably in no acute distress Resp: Expiratory wheezing heard Abdomen: soft and non tender, bowel sounds WNL Extremities: no pitted edema B/L lower extremities Skin: Without rashes or lesions, good turgor Hem/Lymph: without bruising or lymphadenopathy Psych: appropriate affect Neuro: A&OX3, no focal motor deficits _ Inpatient Medications Medications (14) Active SCHEDULED: (4) Azithromycin 500 mg Tablet (Azithromycin Tablet) ??250 mg, By Mouth, Daily Ceftriaxone 1 Gm Inj (Ceftriaxone Inj) ??1 Gm, IVPB, Every 24 hours NaCl 0.9% Flush 3ml (NaCL 0.9% Flush) ??3 mL, IV Push, Every 8 hours Vancomycin 1 Gm / D5%W 200 mL (Vancomycin IVPB) ??1,000 mg 200 mL, IVPB, Every 12 hours CONTINUOUS: (0) PRN: (10) Acetaminophen 325 mg Tablet (Acetaminophen Tablet) ??650 mg, By Mouth, Every 4 hours Albuterol 0.083% Inhalation Solution (Albuterol 0.083% inhalation diana) ??2.5 mg 3 mL, BAND Nebulizer, Every 4 hours Dextromethorphan-Guaifenesin 20 mg-200 mg/10 mL Liqu UD (Robitussin DM Liquid) ??10 mL, By Mouth, Every 4 hours Docusate Sodium 100 mg Capsule (Docusate Sodium Capsule) ??100 mg 1 capsule, By Mouth, 2 times a day Melatonin 3 mg Tablet (Melatonin Tablet) ??3 mg, By Mouth, Daily at bedtime NaCl 0.9% Flush 3ml (NaCL 0.9% Flush) ??3 mL, IV Push, Every 8 hours OxyCODONE 5 mg IR Tablet (oxyCODONE 5 mg oral tablet) ??5 mg, By Mouth, Every 6 hours Polyethylene Glycol 17 Gm Powder (MiraLax Powder) ??17 Gm 1 pack/packet, By Mouth, Daily Senna Tablet ??8.6 mg 1 tablet, By Mouth, 2 times a day Simethicone 80 mg Chewable Tablet (Simethicone Tablet) ??80 mg, Chew, 3 times a day ? 72 Hour Antibiotic History Active Antibiotics Calendar Day Last Administered First Administered Azithromycin??250 mg, By Mouth, Daily ?1 02/08/2024 10:34 02/08/2024 10:34 Vancomycin??1,000 mg, 200 mL, 200 mL/hr, IVPB, Every 12 hours ?2 02/08/2024 08:05 02/07/2024 22:09 Ceftriaxone??1 Gm, 100 mL/hr, IVPB, Every 24 hours ?1 02/08/2024 00:00 02/08/2024 00:00 ? Results Recent Labs BACTERIOLOGY Blood Culture Results Preliminary report ()?? 02/06/2024 17:06 Blood Culture Isolate 1 Comment ()?? 02/06/2024 17:06 Beta Strep Gp A Culture NEGATIVE ()?? 02/05/2024 21:01 Blood Cult 2 Results Preliminary report (Abnormal)?? 02/06/2024 17:06 Reflex to Rapid ID, TANNA, Culture 2 Comment ()?? 02/06/2024 17:06 Blood Culture 2 Isolate 1 Comment (Abnormal)?? 02/06/2024 17:06 Blood Culture 2 Isolate 2 Comment ()?? 02/06/2024 17:06 A calcoaceticus-baumannii comp,Culture 2 Not Detected ()?? 02/06/2024 17:06 Bacteroides fragilis, Culture 2 Not Detected ()?? 02/06/2024 17:06 Enterobacterales, Culture 2 Not Detected ()?? 02/06/2024 17:06 Enterobacter cloacae complex, Culture 2 Not Detected ()?? 02/06/2024 17:06 Escherichia coli, Culture 2 Not Detected ()?? 02/06/2024 17:06 Klebsiella aerogenes, Culture 2 Not Detected ()?? 02/06/2024 17:06 Klebsiella oxytoca, Culture 2 Not Detected ()?? 02/06/2024 17:06 Klebsiella pneumoniae group, Culture 2 Not Detected ()?? 02/06/2024 17:06 Proteus spp., Culture 2 Not Detected ()?? 02/06/2024 17:06 Salmonella spp., Culture 2 Not Detected ()?? 02/06/2024 17:06 Serratia marcescens, Culture 2 Not Detected ()?? 02/06/2024 17:06 Haemophilus influenzae, Culture 2 Not Detected ()?? 02/06/2024 17:06 Neisseria meningitidis, Culture 2 Not Detected ()?? 02/06/2024 17:06 Pseudomonas aeruginosa, Culture 2 Not Detected ()?? 02/06/2024 17:06 Stenotrophomonas maltophilia, Culture 2 Not Detected ()?? 02/06/2024 17:06 Enterococcus faecalis, Culture 2 Not Detected ()?? 02/06/2024 17:06 Enterococcus faecium, Culture 2 Not Detected ()?? 02/06/2024 17:06 Listeria monocytogenes, Culture 2 Not Detected ()?? 02/06/2024 17:06 Staphylococcus spp., Culture 2 DETECTED (Abnormal)?? 02/06/2024 17:06 Staphylococcus aureus, Culture 2 Not Detected ()?? 02/06/2024 17:06 Staphylococcus epidermidis, Culture 2 Not Detected ()?? 02/06/2024 17:06 Staphylococcus lugdunensis, Culture 2 DETECTED (Abnormal)?? 02/06/2024 17:06 Streptococcus spp., Culture 2 Not Detected ()?? 02/06/2024 17:06 Streptococcus agalactiae, Culture 2 Not Detected ()?? 02/06/2024 17:06 Streptococcus pneumoniae, Culture 2 Not Detected ()?? 02/06/2024 17:06 Streptococcus pyogenes, Culture 2 Not Detected ()?? 02/06/2024 17:06 Haven albicans, Culture 2 Not Detected ()?? 02/06/2024 17:06 Haven auris, Culture 2 Not Detected ()?? 02/06/2024 17:06 Haven glabrata, Culture 2 Not Detected ()?? 02/06/2024 17:06 Haven krusei, Culture 2 Not Detected ()?? 02/06/2024 17:06 Haven parapsilosis, Culture 2 Not Detected ()?? 02/06/2024 17:06 Haven tropicalis, Culture 2 Not Detected ()?? 02/06/2024 17:06 Cryptococcus neoformans/gattii,Culture 2 Not Detected ()?? 02/06/2024 17:06 IMP (Carbapenemases), Culture 2 Not applicable ()?? 02/06/2024 17:06 KPC (Carbapenemases), Culture 2 Not applicable ()?? 02/06/2024 17:06 OXA-48-like (Carbapenemases), Culture 2 Not applicable ()?? 02/06/2024 17:06 NDM (Carbapenemases), Culture 2 Not applicable ()?? 02/06/2024 17:06 VIM (Carbapenemases), Culture 2 Not applicable ()?? 02/06/2024 17:06 mcr-1 (Colistin Resistance), Culture 2 Not applicable ()?? 02/06/2024 17:06 CTX-M (ESBL), Culture 2 Not applicable ()?? 02/06/2024 17:06 mecA/C(Methicillin Resistance),Culture 2 Not Detected ()?? 02/06/2024 17:06 mecA/C and MREJ (MRSA), Culture 2 Not applicable ()?? 02/06/2024 17:06 Marcos/B (Vancomycin Resistance),Culture 2 Not applicable ()?? 02/06/2024 17:06 ?? BLOOD COUNT & DIFF WBC 12.2 k/mm3 (High)?? 02/08/2024 00:17 RBC 3.96 m/mm3 (Low)?? 02/08/2024 00:17 Hgb 12.4 Gm/dL ()?? 02/08/2024 00:17 Hct 37.2 % ()?? 02/08/2024 00:17 MCV 93.9 femtoliters ()?? 02/08/2024 00:17 MCH 31.3 pg ()?? 02/08/2024 00:17 MCHC 33.3 Gm/dL ()?? 02/08/2024 00:17 Platelet Count 242 k/mm3 ()?? 02/08/2024 00:17 RDW-SD 44.5 femtoliters ()?? 02/08/2024 00:17 MPV 10.2 femtoliters ()?? 02/08/2024 00:17 Nucleated RBC (Automated) 0.0 #/100 WBC'S ()?? 02/08/2024 00:17 Abs. NRBC 0.0 k/mm3 ()?? 02/08/2024 00:17 ?? CHEM GENERAL Sodium 137 mmol/L ()?? 02/08/2024 00:17 Potassium 3.8 mmol/L ()?? 02/08/2024 00:17 Chloride 107 mmol/L ()?? 02/08/2024 00:17 Bicarbonate Level 21 mmol/L (Low)?? 02/08/2024 00:17 Anion Gap 9 ()?? 02/08/2024 00:17 Glucose Level 114 mg/dL (High)?? 02/07/2024 00:50 BUN 8 mg/dL ()?? 02/08/2024 00:17 Creatinine-Blood 0.82 mg/dL ()?? 02/08/2024 00:17 Estimated GFR Creatinine 99 ML/MIN/1.73 M2 ()?? 02/08/2024 00:17 Calcium 8.1 mg/dL (Low)?? 02/07/2024 00:50 Phosphorus 2.9 mg/dL ()?? 02/07/2024 00:50 Magnesium 1.9 mg/dL ()?? 02/07/2024 00:50 ?? URINE OTHER Est Creatinine Clearance 85.65 mL/min ()?? 02/07/2024 01:33 ? Urinalysis?? No qualifying data available. ? Uric/LDH?? No qualifying data available. ? Assessment/Plan ??28 yoF??w/o pertinent medical Hx,??dc'd earlier today on oral abx??for CAP, called back 2/2 +blood culture (gram + cocci), clinically pt feeling much better, vitals wnl. Admitted to obs for bacteremia pending repeat cultures and sensitivities. ?? Bacteremia (R78.81):??blood cx's drawn bottle w/ gram + cocci. staph lugdunensis clinically pt non septic appearing, feeling better, no fever. suspect likely contaminant??(skin flo). However, will tx??empirically??pending repeat cultures and sensitivities. ?? Plan Rpt??blood cx???already in process On Ceft??+ vanc??+ azith (CAP, gpc??bacteremia) As needed??neb for wheezing daily cbc +bmp ? VTE Prophylaxis:??pneumoboots???ambulatory ?VTE Prophylaxis Assessment:??VTE Prophylaxis Ordered ?? Discharge Planning:??home in 1-2 days???pending repeat blood cultures ?? Code Status:??full code?Order Code Status:??Code Status Ordered * Nathaly Pierre RN: PERFORM, SIGN, VERIFY Event Display: Progress Note Hospital Authored Date: Patient: BONNY GALVAN Age: 28 years Sex: Female : 1995 Associated Diagnoses: None Author: Nathaly Pierre RN Findings Narrative/Incidental Alert and oriented x4, afebrike and the rest of the vital signs are stable. Denies having fever, chills, shortness of breath, dizziness or palpitation. Main compliants were headaches and generalized body aches. Rated pain level 7/10. Tylenol, 2tabs given with relief of symptoms. IV antibiotics-vancomycin and ceftraixone given per ordered. Has been sleeping quietly with callbell within [place] for achute changes. Discharge Information Case Management Discharge Plan : Case Management Discharge Plan Data 02/07/2024 12:15 EST Discharge Level of Care at Discharge Home/[facility] Consult note * Sonal Montez: PERFORM, MODIFY, MODIFY, MODIFY Event Display: Consultation Note Authored Date: Patient: ??BONNY GALVAN ? Age:??28 Years?Sex:??Female?:??1995?? Subjective Infectious Diseases Attending: Dr. Rgoers ?? Requesting Attending/Provider: Dr. Tobias ?? Reason for Consult: Positive blood culture ?? Source of Information: [facility], patient ?? History of Present Illness: The patient is a 28 year-old woman with a past medical history of asthma who presented to the emergency department on 02/04 with productive cough, shortness of breath, fever, sore throat, rhinorrhea, poor p.o. intake, and myalgias.?? She was found to be febrile up to 102.6 and tachycardic with an oxygen saturation near 100% on room air.?? Lab work revealed a neutrophilic leukocytosis to 21.4, creatinine 1.0, LFTs within normal limits, and a procalcitonin of 0.15.?? A throat swab was negative forgroup A strep and a full respiratory pathogen panel was negative.?? A chest x-ray revealed hazy opacification of the inferior left upper lobe concerning for infectious versus inflammatory etiology.??She was admitted on ceftriaxone and azithromycin for presumed pneumonia.?? She was discharged on 02/06 with plan to transition to Augmentin and azithromycin, though was called to return later that night as a 1 out of 2 of her blood cultures from 02/05 were found to be growing Staph hominis and staph lugdunensis.?? 2 sets of repeat blood cultures were obtained which have remained negative to date, and afterwards she was started on IV vancomycin.?? She has been afebrile and hemodynamically stable with an oxygen saturation near 100% on room air.?? Her leukocytosis has resolved.?? ID has been consulted to assist with further management. ?? Today on evaluation, the patient??states she is feeling much better overall.?? She is coughing less, feels less short of breath, denies any pleuritic chest pain,??and fevers have resolved. ??She doesendorse some loose stools which she thinks may be due to her antibiotics.?? She denies any??diffuserash, skin wounds,??arthralgias, or any internal hardware. ?? Past Medical and Surgical History: ??? Asthma ?? Recent Antimicrobials: ??? IV vancomycin 02/06???02/08 ??? Ceftriaxone 1 g daily ? 02/04???present ??? Azithromycin ?02/04???present ?? Medications: Reviewed ?? Antimicrobial Allergies: No known antimicrobial allergies. ?? Family History: No relevant history of infectious issues in first degree relatives. ?? Social History and Infectious Diseases Exposure History:??Lives at home with her son. 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 ??Denies history of tobacco, heavy alcohol, and illicit drug use.? Review of systems fully reviewed and negative aside from what is listed above in the HPI. Objective Vitals & Measurements Vital Signs?? Temperature: 98 DegF (02/09/24 10:15:00) Temperature Route: Oral (02/09/24 10:15:00) Pulse Rate: 80 bpm (02/09/24 10:15:00) Respiratory Rate: 20 br/min (02/09/24 10:15:00) Systolic Blood Pressure:??144 mm Hg??High (02/09/24 10:15:00) Diastolic Blood Pressure:??97 mm Hg??High (02/09/24 10:15:00) Blood pressure sites: Arm, right (02/09/24 10:15:00) Mean Arterial Pressure: 113 mm Hg (02/09/24 10:15:00) Pulse Pressure: 47 mm Hg (02/09/24 10:15:00) Oxygen Saturation: 100 % (02/09/24 10:15:00) Mode of Delivery (Oxygen): Room air (02/09/24 10:15:00) Early Warning Score: 0 (02/09/24 10:17:59) Physical Exam GENERAL: In no acute distress HEENT: Anicteric, moist oral mucosa without lesions or thrush NECK: Neck supple CARDIOVASCULAR: Regular rate and rhythm.?? Not able to appreciate any murmurs, rubs, or gallops.?? No peripheral edema. RESPIRATORY: Lungs clear to auscultation GASTROINTESTINAL: Non-distended, normoactive bowel sounds, non-tender SKIN:?? No diffuse rash present NEUROLOGICAL/PSYCH: A&Ox3, grossly intact LINES:??Peripheral IV ?? Microbiology/ID Work-up: ??? Blood cultures 02/06 x 2: Negative to date ??? Throat culture 02/04: Group A strep negative ??? Blood cultures 02/05 x 2: 1 out of 2 with staph lugdunensis and staph hominis from aerobic bottles only ??? Respiratory pathogen panel 02/04: Negative Test Name Test Result Date/Time WBC 8.2 k/mm3 02/09/2024 02:42 EST RBC 4.09 m/mm3 02/09/2024 02:42 EST Hgb 13.0 Gm/dL 02/09/2024 02:42 EST Hct 37.9 % 02/09/2024 02:42 EST MCV 92.7 femtoliters 02/09/2024 02:42 EST MCH 31.8 pg 02/09/2024 02:42 EST MCHC 34.3 Gm/dL 02/09/2024 02:42 EST Platelet Count 294 k/mm3 02/09/2024 02:42 EST RDW-SD 42.4 femtoliters 02/09/2024 02:42 EST MPV 10.1 femtoliters 02/09/2024 02:42 EST Nucleated RBC (Automated) 0.0 #/100 WBC'S 02/09/2024 02:42 EST Abs. NRBC 0.0 k/mm3 02/09/2024 02:42 EST Sodium 141 mmol/L 02/09/2024 02:42 EST Potassium 3.6 mmol/L 02/09/2024 02:42 EST Chloride 107 mmol/L 02/09/2024 02:42 EST Bicarbonate Level 22 mmol/L 02/09/2024 02:42 EST Anion Gap 12 02/09/2024 02:42 EST Glucose Level 97 mg/dL 02/09/2024 02:42 EST BUN 16 mg/dL 02/09/2024 02:42 EST Creatinine-Blood 1.04 mg/dL 02/09/2024 02:42 EST Estimated GFR Creatinine 75 ML/MIN/1.73 M2 02/09/2024 02:42 EST Calcium 8.9 mg/dL 02/09/2024 02:42 EST Assessment/Plan This is a 28-year-old woman with asthma who was recently admitted with a presumed pneumonia, discharged on Augmentin and azithromycin, though called to return later that night given a positive blood culture.?? ID has been consulted to assist in management. ?? At this time, suspect 1 out of 2 blood cultures with both Staph hominis and Staph lugdunensis on aerobic bottle only likely represents contamination.?? These organisms would be incredibly unlikely teresita associated with a pneumonia, and the patient does not appear to have any skin sores, wounds, internal hardware, or any indwelling lines. It appears that her repeat blood cultures have been negative even prior to starting IV vancomycin.??In terms of her presumed pneumonia, today is day 5 of antibiotics and she seems to be clinically improved with resolution of fever and leukocytosis. ?? Recommendations:?? -Discontinue IV vancomycin -No need for further antibitoics for pneumonia after today's doses ? Thank you for the consultation, ID will sign-off at this time, please call if any questions arise.? TC sent to covering provider regarding recommendations.? Sonal Amin PA-C Infectious Diseases? Discussed with Dr. Rogers ?? Time-based billing: I spent a total of??60 minutes today reviewing the chart/medical records, evaluating the patient, formulating and discussing the treatment plan, and documenting the findings and encounter. ? Note * Nancy Cobos RN: PERFORM Event Display: Discharge/Transfer Note Hospital Authored Date: Nursing Discharge Note Entered On: 02/09/2024 16:32 EST Performed On: 02/09/2024 16:32 EST by Nancy Cobos RN Nursing Discharge Note 2 Discharge Time : 02/09/2024 16:32 EST Discharge Level of Care at Discharge : Home/[facility] Patient Left Unit Via : Ambulatory Patient Accompanied Off Unit with : Responsible adult DC Instructions Provided & Signed by Pt : Yes Patient Understands D/C Instructions : Yes Patient Instructions Discharge Signed : Yes Did Pt have Specialty Bed or Wound Vac : No Nancy Cobos RN - 02/09/2024 16:32 EST * Kori Tobias MD: PERFORM Event Display: Discharge/Transfer Note Hospital Authored Date: Patient: ??COLE, CYRUSMARCK ? Age:??28 Years?Sex:??Female?:??1995?? Patient Information Discharge Location: [facility] Primary Care Physician: Maricarmen Guadarrama MD Admit Date/Time: 02/07/2024 17:54 Discharge Disposition Discharge Disposition: Home: No Services Discharge Diagnosis Bacteremia (R78.81) _ Discharge Medications Acetaminophen (Tylenol 325 mg oral tablet)?650?Milligram?By Mouth?Every 6 hours?as needed?Temperature Albuterol (Ventolin HFA 108 mcg/inh inhalation aerosol with adapter)?2?puff(s)?180?Microgram?Inhalation?Every 6 hours?as needed?Wheezing/Shortness of Breath Ibuprofen (ibuprofen 400 mg oral tablet)?400?Milligram?1?tablet?By Mouth?3 times a day?as needed?for 3?Days?with food or milk?Pain , Moderate Levonorgestrel (Liletta 52 mg intrauterine device)?1?Each?52?Milligram?Vaginally?Once?IUD PredniSONE (predniSONE 20 mg oral tablet)?40?Milligram?By Mouth?Daily?for 4?Days ? Medications Started Prednisone Allergies Allergies ?(Active and Proposed Allergies Only) Pollen? (Severity: Unknown severity, Onset: Unknown) ? PCP Follow-Up/Heads-Up Follow up for asthma exacerbation 2/2 recent pneumonia. Objective Assessment and Plan ??28 yoF??w/o pertinent medical Hx,??dc'd earlier today on oral abx??for CAP, called back 2/2 +blood culture (gram + cocci), clinically pt feeling much better, vitals wnl. Admitted to obs for bacteremia pending repeat cultures and sensitivities. ?? Bacteremia (R78.81):??blood cx's drawn 02/05- bottle w/ gram + cocci. staph lugdunensis clinically pt non septic appearing, feeling better, no fever. suspect likely contaminant??(skin flo).?? Consulted with infectious disease, who also feel this is likely a contaminant. Clinically pt is afebrile and leukocytosis has resolved. Complete 5 days of abx for PNA on 02/09/24 (started previous admission) No more abx indicated on discharge. ?? Asthma exacerbation -- likely??2/2 pna. Mild exacerbation, saturating well on room air, she??has some wheezing in L upper and lower lobes. Complete 5 days of prednisone. PCP follow??up. Continue homeinhalers. ? Vital Signs?? Temperature: 98 DegF (02/09/24 15:13:00) Temperature Route: Oral (02/09/24 15:13:00) Pulse Rate: 80 bpm (02/09/24 15:13:00) Respiratory Rate: 20 br/min (02/09/24 15:13:00) Systolic Blood Pressure:??145 mm Hg??High (02/09/24 15:13:00) Diastolic Blood Pressure: 78 mm Hg (02/09/24 15:13:00) Blood pressure sites: Arm, right (02/09/24 15:13:00) Mean Arterial Pressure: 100 mm Hg (02/09/24 15:13:00) Pulse Pressure: 67 mm Hg (02/09/24 15:13:00) Oxygen Saturation: 100 % (02/09/24 15:13:00) Mode of Delivery (Oxygen): Room air (02/09/24 15:13:00) Early Warning Score: 0 (02/09/24 15:16:38) ? Mobility & Ambulation Level Mobility & Ambulation Level?? No qualifying data available. ?? Therapeutic Activity Therapeutic Activities/Mobility/Balance?? No qualifying data available. ?? . Physical Exam Constitutional: Alert, in no distress. Mental Status: Oriented to person, place and time. Head: Normocephalic. Eyes: Pupils are equal, round and reactive to light. Extraocular muscles intact. Ear, Nose and Throat: Oropharynx clear, mucous membranes moist. Ears and nose without masses, lesions or deformities. Trachea midline. Neck: Supple, Full range of motion. Respiratory: Clear to auscultation. mild b/l wheezing more pronounced in L upper and lower lobes Cardiovascular: S1 S2 regular. No murmurs, rubs or gallops. Gastrointestinal: Abdomen soft, non-tender, non-distended. Normal bowel sounds. No pulsatile mass. No hepatosplenomegaly. Genitourinary: No costovertebral angle tenderness. Neurologic: Cranial nerves II-XII grossly intact. No focal neurological deficits. Flexor plantar response. Moves all extremities spontaneously. Sensation intact bilaterally. Skin: No rashes or lesions. No petechiae or purpura.?? Musculoskeletal: No cyanosis or clubbing. No gross deformities. Normal range of motion. Heme/Lymphatics/Immun: Palpation of neck reveals no swelling or tenderness of neck nodes. Palpationof groin reveals no swelling or tenderness of groin nodes. Psychiatric: Normal mood and affect Pending Results No Pending Results Follow-Up Appointments Added Follow Up ?Time Frame ?Comments Maricarmen Guadarrama MD?Within one week Patient Instructions Based on discussion with the infectious disease specialists, your positive??blood cultures were felt to be secondary to contaminants from the skin.?? You will receive a dose of ceftriaxone IV prior to discharge, and this will complete your antibiotic course for pneumonia. Please take prednisone as prescribed for 4 more days, and follow up with your PCP after discharge to monitor your symptoms. Post Discharge Care Discharge ?02/09/24 15:15:00 EST ?Order Comment:?ok to discharge after IV ceftriaxone dose timed for 3 pm. Discharge Prescriptions ?ePrescribed, 02/09/24 15:15:00 EST ?Order Comment:?? Home Health Face to Face ^HomeHealthFTF Results Discharge Labs BACTERIOLOGY Blood Culture Results Preliminary report ()?? 02/07/2024 19:31 Blood Culture Specimen Source BLOOD ()?? 02/07/2024 19:31 Blood Culture Isolate 1 Comment ()?? 02/07/2024 19:31 Blood Cult 2 Results Preliminary report ()?? 02/07/2024 19:31 Blood Culture 2 Specimen Source BLOOD ()?? 02/07/2024 19:31 Blood Culture 2 Isolate 1 Comment ()?? 02/07/2024 19:31 ?? BLOOD COUNT & DIFF WBC 8.2 k/mm3 ()?? 02/09/2024 02:42 RBC 4.09 m/mm3 (Low)?? 02/09/2024 02:42 Hgb 13.0 Gm/dL ()?? 02/09/2024 02:42 Hct 37.9 % ()?? 02/09/2024 02:42 MCV 92.7 femtoliters ()?? 02/09/2024 02:42 MCH 31.8 pg ()?? 02/09/2024 02:42 MCHC 34.3 Gm/dL ()?? 02/09/2024 02:42 Platelet Count 294 k/mm3 ()?? 02/09/2024 02:42 RDW-SD 42.4 femtoliters ()?? 02/09/2024 02:42 MPV 10.1 femtoliters ()?? 02/09/2024 02:42 Nucleated RBC (Automated) 0.0 #/100 WBC'S ()?? 02/09/2024 02:42 Abs. NRBC 0.0 k/mm3 ()?? 02/09/2024 02:42 ?? CHEM GENERAL Sodium 141 mmol/L ()?? 02/09/2024 02:42 Potassium 3.6 mmol/L ()?? 02/09/2024 02:42 Chloride 107 mmol/L ()?? 02/09/2024 02:42 Bicarbonate Level 22 mmol/L ()?? 02/09/2024 02:42 Anion Gap 12 ()?? 02/09/2024 02:42 Glucose Level 97 mg/dL ()?? 02/09/2024 02:42 BUN 16 mg/dL ()?? 02/09/2024 02:42 Creatinine-Blood 1.04 mg/dL (High)?? 02/09/2024 02:42 Estimated GFR Creatinine 75 ML/MIN/1.73 M2 ()?? 02/09/2024 02:42 Calcium 8.9 mg/dL ()?? 02/09/2024 02:42 ? Blood Glucose Trend Glucose Level: 97 mg/dL (02/09/24 02:42:00) ? Microbiology ?? Blood Culture?? Completed?? Source: Blood Body Site: ?? Collected Dt/Tm: 02/07/2024 19:32 Last Updated Dt/Tm: 02/09/2024 11:09 ?? Blood Culture #2?? Completed?? Source: Blood Body Site: ?? Collected Dt/Tm: 02/07/2024 19:32 Last Updated Dt/Tm: 02/09/2024 11:09 ?? Blood Culture Result?? Completed?? Source: Blood Body Site: ?? Collected Dt/Tm: 02/07/2024 19:31 Last Updated Dt/Tm: 02/09/2024 11:10 ?? Blood Culture 2 Results?? Completed?? Source: Blood Body Site: ?? Collected Dt/Tm: 02/07/2024 19:31 Last Updated Dt/Tm: 02/09/2024 11:10 ? 40??minutes spent on discharge * Nancy Cobos RN: PERFORM Event Display: Patient Education/Instruction Authored Date: Inpatient Adult Discharge Instructions. [place] [id number] Name: BONNY GALVAN : 1995?? Visit: 02/07/2024 17:54?? Current Date: 02/09/2024 16:11 ?? Account: [id number]?? Inpatient Adult Discharge Instructions We would like to thank you for allowing us to assist you with your healthcare needs. The following includes patient education materials and information regarding your injury/illness. Our entire staffstrives to provide an excellent experience for our patients and their families. PLEASE ENSURE YOU FOLLOW-UP PER THE INSTRUCTIONS BELOW! ?? YOUR OPINION IS IMPORTANT TO US! Please complete the survey you may receive by mail or email. Your feedback will be used to make improvements to the healthcare experiences of our patients and their families. Surveys are administered by [employer] ?? If further treatment with your primary care physician or another doctor is recommended, it is important for you to keep the appointment. Call your primary care physician or return to the Emergency Department immediately if your condition worsens, fails to improve, or new symptoms develop. If you need to find a doctor, you can call [facility] [place] for a referral at [phone] or toll free at [phone]) or log in to [email or web address] ([email or web address]).. ?? [facility], in keeping with [facility] guidance, no longer requires face masks for staff, patientsor visitors in most situations. Similiar to time spent indoors at other locations, there is the chance that you were exposed to repiratory viruses during your time with us (such as flu or COVID-19). If you develop symptoms concerning for a viral respiratory infection, please seek testing (and treatment if indicated) from your medical provider or home test kit. ?? You can view and manage your care through the patient portal or by using a health care zoya of your choosing. [employer] is a website that allows you to securely view your medical information including your hospital discharge summary, office visit summaries, medications and follow-up visits. You can also request appointments, renew medications, and request access to your medical information using a health care zoya of your choosing, or just ask a question. You can enroll at [email or web address] or register during your next office visit. You have been discharged from [facility], Patient Care Unit: D3B??. If you have any questions regarding these instructions, including results of studies pending, afteryou leave, please call us and we will be happy to assist you 21/10. [facility] Your Care Team Attending Physician Kori Tobias MD?? Consulting Providers Kori Tobias MD?? Discharging Providers Kori Tobias MD Your Diagnosis Bacteremia Tests Performed Below is a partial list of the tests performed during your hospitalization. You may have had other tests and procedures not included in this list. Please discuss all test results with your provider. Blood Culture Blood Culture #2 Blood Culture 2 Results Blood Culture Result BUN Calcium Level CBC Creatinine Electrolytes Glucose Level BUN?? Blood Culture?? Blood Culture #2?? Blood Culture 2 Results?? Blood Culture Result?? CBC?? Calcium Level?? Creatinine?? Electrolytes?? Glucose Level?? Primary Care Provider Maricarmen Guadarrama MD? Advance Directive Health Care Proxy on File No Patient is <18 years old Discharge Vitals Temperature: 98 DegF Pulse Rate: 80 bpm Respiratory Rate: 20 br/min Systolic Blood Pressure:??145 mm Hg??High Diastolic Blood Pressure: 78 mm Hg Oxygen Saturation: 100 % Studies Pending All studies ordered during this hospital stay have been completed unless listed below. Please discuss all pending results with your provider listed above in these instructions. ?? No incomplete studies found?? What to do next Instructions From Your Doctor Based on discussion with the infectious disease specialists, your positive??blood cultures were felt to be secondary to contaminants from the skin.?? You will receive a dose of ceftriaxone IV prior to discharge, and this will complete your antibiotic course for pneumonia. Please take prednisone as prescribed for 4 more days, and follow up with your PCP after discharge to monitor your symptoms. ?? Orders? 02/09/24 15:15:00 EST?? Prescriptions??, ??02/09/24 15:15:00 EST?? You Need to Schedule the Following Appointments Follow Up with??Maricarmen Guadarrama MD When:??Within Within one week Where: [address] [place] [id number] Discharge Medications COLE CYRUSMARCK :1995 Visit Date:02/07/2024 Medications: Please continue your medications until treatment is completed or stopped by your provider. Medications not listed below should be discontinued. Discuss any questions related to medications with your provider. What How Much When Instructions Next Dose New PredniSONE (predniSONE 20 mg oral tablet) 40 Milligram Oral Daily Duration: 4 Days Pickup at [facility]/pharmacy #[id number] 11/12 am Unchanged Acetaminophen (Tylenol 325 mg oral tablet) 650 Milligram Oral Every 6 hours as needed for Temperature as prescribed Unchanged Albuterol (Ventolin HFA 108 mcg/ inh inhalation aerosol with adapter) 2 puff(s) Inhalation Every 6 hours as needed for Wheezing/Shortness of Breath as prescribed Unchanged Ibuprofen (ibuprofen 400 mg oral tablet) 1 tab(s) Oral 3 times a day as needed for Pain , Moderate Duration: 3 Days with food or milk ?? as prescribed Unchanged Levonorgestrel (Liletta 52 mg intrauterine device) 1 Each Vaginally Once IUD ?? as prescribed Pharmacy Information [facility]/pharmacy #[id number]: [address], [place] [phone] ?? What How Much When Comments Stop Taking Amoxicillin-Clavulanate (Augmentin 875 mg-125 mg oral tablet) 1 tab(s) Oral Every 12 hours Duration: 4 Days Stop Taking Azithromycin (azithromycin 500 mg oral tablet) 1 tab(s) Oral Daily Duration: 4 Days Prescription Given During Visit PredniSONE (predniSONE 20 mg oral tablet) - 40 mg, By Mouth, Daily, # 4 tablet, 0 Refills, [id number], [address] [place] [phone]?? Laboratory Results Below is a partial list of the most recent Laboratory test results done prior to this discharge. You may have had other tests and procedures not included in this list. Please discuss all test resultswith your provider. Blood Culture (02/07/2024) ???Blood Culture Results - Preliminary report???Blood Culture Specimen Source - BLOOD Blood Culture #2 (02/07/2024) ???Blood Cult 2 Results - Preliminary report???Blood Culture 2 Specimen Source - BLOOD Blood Culture 2 Results (02/07/2024) ???Blood Culture 2 Isolate 1 - Comment Blood Culture Result (02/07/2024) ???Blood Culture Isolate 1 - Comment BUN (02/09/2024) ???BUN - 16 mg/dL Calcium Level (02/09/2024) ???Calcium - 8.9 mg/dL CBC (02/09/2024) ???WBC - 8.2 k/mm3???RBC - 4.09 m/mm3???Hgb - 13.0 Gm/dL???Hct - 37.9 %???MCV - 92.7 femtoliters???MCH - 31.8 pg???MCHC - 34.3 Gm/dL???Platelet Count - 294 k/mm3???RDW-SD - 42.4 femtoliters???MPV - 10.1 femtoliters???Nucleated RBC (Automated) - 0.0 #/100 WBC'S???Abs. NRBC - 0.0 k/mm3 Creatinine (02/09/2024) ???Creatinine-Blood - 1.04 mg/dL???Estimated GFR Creatinine - 75 ML/MIN/1.73 M2 Electrolytes (02/09/2024) ???Sodium - 141 mmol/L???Potassium - 3.6 mmol/L???Chloride - 107 mmol/L???Bicarbonate Level - 22 mmol/L???Anion Gap - 12 Glucose Level (02/09/2024) ???Glucose Level - 97 mg/dL You will be contacted within 72 hours with your results. Allergies (NKA means No Known Allergies) Pollen Problems Active Problems??(2) Asthma?? 2, currently ?? Education Materials Below is the list of Educational Leaflet Providered with your Discharge Instructions. Valuables and Belongings I fully understand and agree that [facility] accepts no responsibility for all my personal property including clothing, toilet articles, radios, jewelry, dentures, hearing aids, rings, money, or any other property that is in my possession or is brought to me after admission. I understand certain valuables may be placed in a hospital safe for a short period of time. I understand that the hospital is not liable for loss or damage due to accident, fire, or other natural occurrence while said property is in the safe. I accept full responsibility for any personal property that I keep with me, and will not hold the hospital responsible in case of loss or disappearance. I acknowledge that i have been encouraged to send valuables and belongings home. ? Other Discharge Information ? Pulmonary Rehab Status?? Pulmonary Rehab Discharge Status?? Respiratory Rate: 20 br/min ? Common Emergency Awareness Tips IS IT A STROKE? Act FAST and Check for these signs: FACE Does the face look uneven? ARM Does one arm drift down? SPEECH Does their speech sound strange? TIME Call at any sign of stroke ?? Heart Attack Signs Chest discomfort: Most heart attacks involve discomfort in the center of the chest and lasts more than a few minutes, or goes away and comes back. It can feel like uncomfortable pressure, squeezing, fullness or pain. Discomfort in upper body: Symptoms can include pain or discomfort in one or both arms, back, neck, jaw or stomach. Shortness of breath: With or without discomfort. Other signs: Breaking out in a cold sweat, nausea, or lightheaded. Remember, MINUTES DO MATTER. If you experience any of these heart attack warning signs, call to get immediate medical attention! ?? Smoking can increase your chances of developing chronic health problems and can cause harmful effects to other family members in your house. If you smoke, you are strongly encouraged to quit. Please call [facility] ACE Link at [phone] or [phone] ([phone]) or log in to [email or web address] for referrals to smoking cessation programs. ?? 252 Suicide & Crisis Lifeline is available 21/10 if you or someone you know needs to find a reason to keep living. By calling 177 you'll be connected to a skilled, trained counselor at a crisis center in your area. INPATIENT DISCHARGE INSTRUCTIONS SIGNATURE PAGE COLE BONNY Location:[facility] Registration Date and Time:02/07/2024 17:54 EST Primary Care Physician: Maricarmen Guadarrama MD, Attending Physician: Micheline SOLOMON, Kori, I BONNY GALVAN, have received the above patient education materials/instructions and have verbalized understanding. If ambulance or transport services are being used I further acknowledge being given a choice of service. ?? If you need to contact me, please call me at this number: . Patient/Ad Setter Name: Patient/Ad Setter Signature: Relationship to Patient: Witness Name/Signature: Date: Patient Care team information Care Team Personnel Name: Anya Mcintosh RN Position: [facility] RN Member Role: Primary Care Nurse Name: Maricarmen Guadarrama MD Position: [facility] Physician - Primary Care Member Role: PCP Address: Address: [address], [place] [address] Name: Nancy Cobos RN Position: S RN Member Role: Primary Care Nurse Name: Kurt Gresham RN Position: S RN Member Role: Primary Care Nurse Care Team Related Persons Name: COLELAURIE MULLERSANDOVAL Address: [address] [address]
== END 2024-03-09 10:04 | disposition home or self-care (01) ==
PROVIDERS: PCP Internal Medicine; Visit Provider Internal Medicine Pulmonary Disease
DX: J45.909 Unspecified asthma, uncomplicated (principal); Z91.09 Other allergy status, other than to drugs and biological substances
CPT/HCPCS: 99204

== ENCOUNTER 2024-03-16 12:49 | Outpatient (AMB) | payer OTHER, SELFPAY ==
[2024-03-16 12:54] VITALS: BP 118/74; PULSE 74; O2SAT 98; BMI 28.6
--- NOTE | 2024-03-16 12:54 | A.OFFPC_ITS ---
Vital Signs 03/16/24 12:54 Height 5 ft 7 in Weight 182 lb 9 oz BMI 28.6 BP 118/74 Blood Pressure Location Rt brachial Position Sitting Pulse 74 Pulse Source Pulse Oximeter Pulse Oximetry (%) 98 Oxygen Delivery Method Room Air Intake Visit Reasons: 1 month follow up Allergies No Known Allergies Allergy (Verified 03/16/24 12:57) Medication List - Last Reconciled 03/16/24 by Maricarmen Guadarrama MD cetirizine (Zyrtec) 10 mg PO DAILY PRN diazepam 5 mg PO BID PRN fluticasone furoate-vilanterol 200-25 mcg/dose (Breo Ellipta) 1 inh inhalation DAILY hydroxyzine HCl 10 mg PO TID levalbuterol tartrate 45 mcg/actuation (Xopenex HFA) 2 puffs inhalation Q4-6H PRN Ventolin HFA 90 mcg/actuation (albuterol sulfate) 2 puffs inhalation QID PRN NS Tobacco use date assessed: 03/16/24 Dental Screening Dental Screen Date: 03/16/24 Did you have a dental visit in the last 12 months?: Yes Did you have a dental problem in the last 6 months where you did not have access to dental care?: No Was dental information given to patient?: Patient has dentist HPI 1 month follow up HPI Details Patient presents for the follow-up of asthma. she c/o persistent wheezing and coughing with clear sputum. Patient had negative chest x-ray and was prescribed Breo 200 mcg and Levaquin last week by head turning machine operator. patient has been using albuterol inhaler twice a day She is scheduled for pulmonary function test and follow-up with head turning machine operator in 1 month. [facility] Medical History GERD (gastroesophageal reflux disease) Annual physical exam Mild asthma Alopecia Surgical History No pertinent past surgical history Family History Father Medical history non-contributory Mother Medical history non-contributory Brother No problems noted. Brother No problems noted. Sister No problems noted. Son No problems noted. Social History Household Members Other:: lives alone, 1 son 6y old, smoke marijuana, Housing: House Patient Tobacco Use Status: Never used Tobacco e-Cigarette/Vaping Use: Never Used service: No Current occupational status: employed Cognitive needs: No Hearing needs: No Vision needs: No Questionnaire PHQ-9 Over the last 2 weeks, how often have you been bothered by any of the following problems? 1. Little interest or pleasure in doing things: more than half the days 2. Feeling down, depressed, or hopeless: nearly every day 3. Trouble falling or staying asleep, or sleeping too much: more than half the days 4. Feeling tired or having little energy: several days 5. Poor appetite or overeating: more than half the days 6. Feeling bad about yourself - or that you are a failure or have let yourself or your family down: not at all 7. Trouble concentrating on things, such as reading the newspaper or watching television: more than half the days 8. Moving or speaking so slowly that other people could have noticed. Or the opposite - being so fidgety or restless that you have been moving around a lot more than usual: more than half the days 9. Thoughts that you would be better off or of hurting yourself in some way: not at all Total score: 14 Depression Screening Interpretation: Positive (Patient is established with counselor) Depression Screening Follow-up: Existing condition and In treatment Depression Screening Done: Yes 83219 - PHQ-9 Billing: Yes Source: Developed by Drs. Roger Rodríguez, Gladys Vital, Casey Edward and colleagues, with an educational radha from [employer]. Thrive Questionnaire Date Thrive assessed: 03/16/24 I am a: Patient What is your living situation today?: I have a steady place to live Within the past 12 months, did the food you bought not last and you didn't have the money to get more?: Never true Within the past 12 months, did you worry whether your food would run out before you got money to buy more?: Never true Do you have trouble paying for medicines?: No Do you have trouble getting transportation to medical appointments?: No Do you have trouble paying your heating and electricity bill?: Yes Do you have trouble taking care of your child, family member or friend?: No Do you have trouble with day-to-day activities such as bathing, preparing meals, shopping, managing finances, etc.?: No Are you currently unemployed and looking for a job?: Yes Are you interested in more education?: No Please select the resources that you would like help with: Utilities Currently or been in a relationship where the following occur: No concerns reported THRIVE Score: 1 AUDIT C Alcohol Use Questionnaire (AUDIT-C) 1. How often do you have a drink containing alcohol?: Monthly or less 2. How many drinks containing alcohol do you have on a typical day when you are drinking?: 1 or 2 3. How often do you have six or more drinks on one occasion?: Never Total Score: 1 Score Reviewed/Action Taken: Yes JEET-7 AMB Questionnaire JEET-7 Date JEET - 7 assessed: 03/16/24 Feeling nervous, anxious, or on edge: 3 = Nearly every day Not being able to stop or control worryin = Nearly every day Worrying too much about different things: 3 = Nearly every day Trouble relaxin = Nearly every day Being so restless that it is hard to sit still: 3 = Nearly every day Becoming easily annoyed or irritable: 3 = Nearly every day Feeling afraid as if something awful might happen: 3 = Nearly every day Total JEET-7 score (0-4 normal; 5-9 mild; 10-14 moderate; 15-21 severe): 21 Source: Developed by Drs. Roger Rodríguez, Gladys Vital, Casey Edward and colleagues, with an educational radha from [employer]. JEET-7 Assessment Billing JEET-7 Assessment Tool: JEET-7 Assessment 69628 Review of Systems Const All systems reviewed & are unremarkable except as noted in HPI and below Eyes Reports no additional complaints ENT Reports no additional complaints Card Reports no additional complaints Resp Reports no additional complaints GI Reports no additional complaints Reports no additional complaints Physical exam (Primary Care) Vital Signs: Last Vital Signs Pulse 74 03/16/24 12:54 BP 118/74 03/16/24 12:54 Pulse Ox 98 03/16/24 12:54 Oxygen Delivery Method Room Air 03/16/24 12:54 BMI result Body Mass Index 28.6 Tobacco/Smoking Status: Tobacco use Status Tobacco use date assessed 03/16/24 03/16/24 12:57 Patient Tobacco Use Status Never used Tobacco 03/16/24 12:57 e-Cigarette/Vaping Use Never Used 03/16/24 12:57 PHQ-9: PHQ-9 Score PHQ-9: Total score 14 03/16/24 12:57 Depression Screening Interpretation: Positive (Patient is established with counselor) Depression Screening Follow-up: Existing condition and In treatment Thrive Assessment: Date of Thrive Assessment Date Thrive assessed 03/16/24 03/16/24 12:57 Currently or been in a relationship where the following occur: No concerns reported Const General: no acute distress HENMT Head: Yes normal to inspection Face and sinus: Yes normal facial exam Throat: Yes posterior oropharynx normal Neck Neck: Yes supple Resp Effort & Inspection: normal respiratory effort Auscultation: clear to auscultation bilaterally and diminished lung sounds Cardio Rhythm: regular rhythm Heart sounds: S1 normal heart sound present and S2 normal heart sound present Coding Level of Care Code Est Pt Level 3 (93914) Diagnoses Environmental allergies Z91.09 Asthma J45.909 Additional Codes JEET-7 Assessment Billing - JEET-7 Assessment Tool: JEET-7 Assessment 96912 ([id number]) PHQ-9 - 92041 - PHQ-9 Billing: Yes ([id number]) Assessment & Plan Assessment & Plan (1) Environmental allergies: Comment: Multiple allergies to dogs cats grass and trees Code(s): Z91.09 - Other allergy status, other than to drugs and biological substances Category: Medical Plan: Follow-up with pulmonology (2) Asthma: Code(s): J45.909 - Unspecified asthma, uncomplicated Category: Medical Plan: Continue Breo and albuterol as needed
== END 2024-03-16 13:31 | disposition home or self-care (01) ==
PROVIDERS: PCP Internal Medicine; Visit Provider Internal Medicine
DX: Z91.09 Other allergy status, other than to drugs and biological substances (principal); J45.909 Unspecified asthma, uncomplicated

== ENCOUNTER → 2024-03-16 12:49 | Outpatient (BNVA) | payer OTHER, SELFPAY | PROVIDERS: PCP Internal Medicine; Visit Provider Internal Medicine | DX: J45.909 Unspecified asthma, uncomplicated (principal); Z91.09 Other allergy status, other than to drugs and biological substances | CPT/HCPCS: 96127; 99212 ==